=== PATIENT | male | born 1995 | race Caucasian/White ===

== ENCOUNTER 2016-07-05 09:21 | Inpatient (IN) | payer OTHER ==
--- NOTE | 2016-07-05 09:15 | EDPHY ---
HPI/HX/ROS/PE/MDM Narrative: CHIEF COMPLAINT: Self-inflicted lacerations to wrists and groin. HPI: The patient is a 21-year-old male who presents via EMS as a LTA for self- inflicted lacerations to bilateral wrists and groin. He inflicted these at 3am this morning (6 hours). The bleeding has been well-controlled. EMS estimates he lost 3/4-1 liter of blood. He denies lightheadedness, dizziness, or other complaints. He is able to move all of his fingers normally. He denies numbness, weakness, or other complaints. He drank a pint of whiskey last night and ingested 12 oxycodone along with 3 hydrocodone. REVIEW OF SYSTEMS: Aside from elements discussed in the HPI, a comprehensive 10-point review of systems was reviewed and is negative. PMH: Denies. SOCIAL HISTORY: Works at [employer]. PHYSICAL EXAM: General: Patient is alert, in no acute distress. ENT: Eyes are normal to inspection. ENT inspection normal. Neck: Normal inspection. Full range of motion. Respiratory: No respiratory distress. Breath sounds normal bilaterally. Cardiovascular: Regular rate and rhythm. Strong peripheral pulses. 2+ radial pulses bilaterally. 2+ dorsalis pedis pulses bilaterally. Abdomen: The abdomen is nontender to palpation. There are no peritoneal signs. There are normal bowel sounds. Back: Normal to inspection. No tenderness to palpation. Skin: Normal color. No rash. Warm and dry. Extremities: Left arm: 2 lacerations. Distal laceration 3 inches long, proximal laceration 2 inches long. Clotted blood is present and there is no active bleeding. Same on right arm. 4 inch deep laceration to right groin. No active bleeding. Neuro: Oriented x3. Normal motor function. Normal sensory function. Portions of this note were transcribed by an ED scribe. I personally performed the history, physical exam, and medical decision making; and confirm the accuracy of the information in the transcribed note. (Reg Zuluaga) ED Course: Procedure: Laceration repair. Verbal consent was obtained from the patient. The 13 cm laceration on the right inner thigh was anesthetized using 0.5% Marcaine with epinephrine. The wound was carefully irrigated by the emergency department electroencephalograph technician. Next, the wound was prepped and draped in sterile fashion and explored to its base with a gloved finger. There were no deep structures involved. No tendon injury was identified. No vascular injury was identified. No foreign bodies were identified. The wound was repaired with 4.0 Vicryl rapide 3 deep sutures, 4.0 Prolene, 1 running stitch, 5.0 Prolene, 2 simple interrupted sutures. The wound repair was complex. Multiple wound margins required revising. Multiple flaps required alignment. Significant debridement was required. The procedure was performed by myself. Tetanus and antibiotic status were addressed. (Hortencia Ku) I met EMS on arrival and obtained a report from the shuttle preparation supervisor. This patient arrived as a LTA for 2 self-inflicted lacerations to each wrist and a large laceration to his right groin. His vitals are stable. Blood pressure is normal. The bleeding has been well controlled and the wrist lacerations are scabbed over. He inflicted these at 3 am. He drank a pint of whiskey and took a number of opiate pain medications. He denies lightheadedness, dizziness, or other complaints. On exam the lacerations to his wrists are 2 and 3 inches long and clotted. There is no active bleeding. The laceration to his groin is 4 inches long and quite deep. Again, there is no active bleeding. An IV was established and labs ordered. I reviewed the patient's laboratory studies. WBC elevated at 21.63. Hortencia Ku, SHIFT MGR, to repair patient's lacerations. 1206: On exam the patient has cut through the palmaris longus tendon and possibly the median nerve. Hand surgery paged. 1220: Dr. Dove will take the patient to the operating room later today. 1230: Consulted with Dr. Padilla, surgery. He will consult on the patient. 1350: Consulted with Dr. Padilla. He recommends admission to medicine service. 1406: Consulted with hospitalist. Admission accepted for Dr. Cavazos. ( Reg Zuluaga) MDM: This patient presents with multiple deep self-inflicted lacerations. Detailed exam by Hortencia Ku reveals at least to flexor tendon lacerations. The patient will be repaired in the operating room later this evening. Given the fact that he is on an M1 hold, he will need to be admitted by the Medicine service in the ICU the following that, he will or require mental health evaluation and I suspect likely inpatient placement. (Reg Zuluaga) - Data Points Laboratory Results: Laboratory Results 07/05/16 09:29 07/05/16 09:29 07/05/16 07/05/16 07/05/16 09:29 09:29 09:29 WBC 21.53 10^3/uL H 10^3/uL (3.80-9.50) RBC 4.93 10^6/uL 10^6/uL (4.40-6.38) Hgb 15.2 g/dL g/dL (13.7-17.5) Hct 43.8 % % (40.0-51.0) MCV 88.8 fL fL (81.5-99.8) MCH 30.8 pg pg (27.9-34.1) MCHC 34.7 g/dL g/dL (32.4-36.7) RDW 11.9 % % (11.5-15.2) Plt Count 365 10^3/uL 10^3/uL (150-400) MPV 10.1 fL fL (8.7-11.7) Neut % (Auto) Not Reported Lymph % (Auto) Not Reported [place] % (Auto) Not Reported Eos % (Auto) Not Reported Baso % (Auto) Not Reported Nucleat RBC Rel Count 0.0 % % (0.0-0.2) Absolute Neuts (auto) Not Reported Absolute Lymphs (auto) Not Reported Absolute Monos (auto) Not Reported Absolute Eos (auto) Not Reported Absolute Basos (auto) Not Reported Absolute Nucleated RBC 0.00 10^3/uL 10^3/uL (0-0.01) Immature Gran % Not Reported Seg Neutrophils % 78 % % Band Neutrophils % 6 % % Lymphocytes % 12 % % Monocytes % 4 % % Immature Gran # Not Reported Absolute Seg Neuts 16.79 10^/uL H 10^/uL (1.70-6.50) Absolute Band Neuts 1.29 10^3/uL H 10^3/uL (0.00-0.70) Absolute Lymphocytes 2.58 10^3/uL 10^3/uL (1.00-3.00) Absolute Monocytes 0.86 10^3/uL H 10^3/uL (0.30-0.80) RBC/WBC/PLT Morphology NORMAL (NORMAL) Platelet Estimate ADEQUATE (ADEQ) Sodium 142 mEq/L mEq/L (134-144) Potassium 4.2 mEq/L mEq/L (3.5-5.2) Chloride 106 mEq/L mEq/L (97-110) Carbon Dioxide 20 mEq/l L mEq/l (22-31) Anion Gap 16 mEq/L mEq/L (8-16) BUN 11 mg/dL mg/dL (7-23) Creatinine 1.0 mg/dL mg/dL (0.7-1.3) Estimated GFR > 60 Glucose 184 mg/dL H mg/dL (70-100) Calcium 9.2 mg/dL mg/dL (8.5-10.4) Salicylates < 1.0 mg/dL L mg/dL (2.0-20.0) Acetaminophen 19 mcg/mL mcg/mL (10.0-30.0) Ethyl Alcohol 166 mg/dL H mg/dL (0-10) Medications Given: Discontinued Medications Fentanyl (Sublimaze) 50 mcg IVP EDNOW ONE Stop: 07/05/16 10:34 Last Admin: 07/05/16 11:15 Dose: 50 mcg Sodium Chloride (Ns) 1,000 mls @ 0 mls/hr IV ONCE ONE PRN Reason: Wide Open Stop: 07/05/16 09:31 Last Admin: 07/05/16 09:47 Dose: 1,000 mls Ondansetron HCl (Zofran) 4 mg IVP EDNOW ONE Stop: 07/05/16 09:44 Last Admin: 07/05/16 09:51 Dose: 4 mg General Initial Vital Signs: Initial Vital Signs Temperature (C) 36.5 C 07/05/16 09:28 Heart Rate 121 H 07/05/16 09:28 Respiratory Rate 24 H 07/05/16 09:28 Blood Pressure 97/86 H 07/05/16 09:28 O2 Sat (%) 93 07/05/16 09:28 O2 Delivery Mode Room Air Allergies/Adverse Reactions: No Known Allergies Allergy (Unverified 01/18/14 08:44) Home Medications: Medication Instructions Recorded NK [No Known Home Meds] 01/18/14 Departure - Departure Disposition: [facility] Inpatient Acute Clinical Impression: Multiple lacerations, Suicide ideation, Tendon laceration Condition: Fair Report Scribed for: Reg Zuluaga Report Scribed by: Malachi Vargas Date of Report: 07/05/16 Time of Report: 09:33
[2016-07-05] MEDS ORDERED: NS 1,000 ML IV ONE (09:30)
[2016-07-05] MEDS ORDERED: ONDANSETRON 4 MG/2 ML VIAL IVP ONE (09:43)
[2016-07-05 10:20] LABS: ADD DIFF? YES; ADD MORPH? NO; ADD SCAN? NO; ATYPICAL LYMPHOCYTE FLAG 0 (0-99); FRAGMENT RBC FLAG 0 (0-99); HEMATOCRIT 43.8 % (40.0-51.0); HEMOGLOBIN 15.2 g/dL (13.7-17.5); LEFT SHIFT FLG 20 (0-99); LIPEMIA HEMOLYSIS FLAG 90 (0-99); MEAN CELL HEMOGLOBIN 30.8 pg (27.9-34.1); MEAN CELL HEMOGLOBIN CONCENTR. 34.7 g/dL (32.4-36.7); MEAN CELL VOLUME 88.8 fL (81.5-99.8); MEAN PLATELET VOLUME 10.1 fL (8.7-11.7); PLATELET CLUMPS FLAG 0 (0-99); PLATELET COUNT 365 10^3/uL (150-400); RED BLOOD CELL COUNT 4.93 10^6/uL (4.40-6.38); RED CELL DISTRIBUTION WIDTH 11.9 % (11.5-15.2)
[2016-07-05 10:24] LABS: ANION GAP 16 mEq/L (8-16); CALCIUM 9.2 mg/dL (8.5-10.4); CARBON DIOXIDE 20 mEq/l (22-31); CHLORIDE 106 mEq/L (97-110); ETHANOL SERUM 166 mg/dL (0-10); GLOMERULAR FILTRATION RATE > 60; GLUCOSE 184 mg/dL (70-100); POTASSIUM 4.2 mEq/L (3.5-5.2); SODIUM 142 mEq/L (134-144)
[2016-07-05] MEDS ORDERED: fentaNYL 100 MCG/2 ML INJ IVP ONE (10:33)
[2016-07-05 10:46] LABS: SALICYLATE < 1.0 mg/dL (2.0-20.0)
[2016-07-05 10:52] LABS: PLATELET ESTIMATE ADEQUATE (ADEQ)
[2016-07-05] MEDS ORDERED: BUPIVACAINE 0.5% 30 ML SDV ONE ×2 (13:58→16:31)
[2016-07-05] MEDS ORDERED: POLYMYXIN B SULFATE 500,000 UNIT/10 ML SYR IRR ONE ×2 (13:59→16:32)
[2016-07-05] MEDS ORDERED: BACITRACIN 50,000 UNITS/10 ML SYR IRR ONE (13:59)
[2016-07-05] MEDS ORDERED: HYDROmorphONE/DILAUDID 1 MG/ML SYR IVP PRN (15:35)
[2016-07-05] MEDS ORDERED: ONDANSETRON DISINTEGRATING 4 MG TAB PO PRN (15:35)
[2016-07-05] MEDS ORDERED: ONDANSETRON 4 MG/2 ML VIAL IVP PRN (15:35)
[2016-07-05 15:44] LABS: HEMATOCRIT 35.1 % (40.0-51.0); HEMOGLOBIN 12.2 g/dL (13.7-17.5)
[2016-07-05] MEDS ORDERED: NS 1,000 ML IV SCH (15:45)
--- NOTE | 2016-07-05 16:20 | PDGENHP ---
History and Physical - Chief Complaint suicide attempt - History of Present Illness 21 yo male with h/o depression diagnosed as a teenager, presented to ED after cutting his wrists last night. His girlfriend told him that she didn't love him , but he loves her. He felt so hopeless and cut his wrists, expecting not to wake up. He was diagnosed with depression at age 16 and started on Prozac, though he felt this made him "numb" so he stopped taking it. He has no prior h/ o suicide attempts and no prior hospitalizations. He is unsure how he feels now , is quite tearful. Unable to answer if he still has suicidal thoughts. He denies CP, SOB, lightheadedness or dizziness. History Information - Allergies/Home Medication List Allergies/Adverse Reactions: No Known Allergies Allergy (Unverified 01/18/14 08:44) Home Medications: NK [No Known Home Meds] 01/18/14 [Last Taken Unknown] I have personally reviewed and updated: family history, medical history, social history, surgical history - Past Medical History Additional medical history: depression diagnosed as a teenager - Surgical History Reports: no pertinent surgical hx - Family History Additional family history: mom has depression - Social History Smoking Status: Never smoked Alcohol Use: Other (1-2 beers a day) Drug Use: Marijuana Additional social history: 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 Girlfriend just broke up with him, prompting his self injury. [place] he does not [place] them alerted to his status at this time. Review of Systems ROS: 10pt was reviewed & negative except for what was stated in HPI & below Physical Exam Temp Pulse Resp BP Pulse Ox 36.6 C 82 16 100/60 97 07/05/16 15:00 07/05/16 16:00 07/05/16 16:00 07/05/16 16:00 07/05/16 16:00 Constitutional: no apparent distress Eyes: PERRL Ears, Nose, Mouth, Throat: moist mucous membranes Cardiovascular: regular rate and rhythym, no murmur, rub, or gallop Respiratory: no respiratory distress, clear to auscultation Gastrointestinal: normoactive bowel sounds, soft, non-tender abdomen Skin: other (b/l wrist bandages, right bandage is saturated and bleeding onto bed, pressure dressing applied) Musculoskeletal: full muscle strength Neurologic: AAOx3 Psychiatric: interacting appropriately, anxious Lab Data & Imaging Review 07/05/16 15:30 07/05/16 09:29 WBC 21.53 10^3/uL (3.80-9.50) H 07/05/16 09:29 RBC 4.93 10^6/uL (4.40-6.38) 07/05/16 09:29 Hgb 12.2 g/dL (13.7-17.5) L 07/05/16 15:30 Hct 35.1 % (40.0-51.0) L 07/05/16 15:30 MCV 88.8 fL (81.5-99.8) 07/05/16 09:29 MCH 30.8 pg (27.9-34.1) 07/05/16 09:29 MCHC 34.7 g/dL (32.4-36.7) 07/05/16 09:29 RDW 11.9 % (11.5-15.2) 07/05/16 09:29 Plt Count 365 10^3/uL (150-400) 07/05/16 09:29 MPV 10.1 fL (8.7-11.7) 07/05/16 09:29 Neut % (Auto) Not Reported 07/05/16 09:29 Lymph % (Auto) Not Reported 07/05/16 09:29 [place] % (Auto) Not Reported 07/05/16 09:29 Eos % (Auto) Not Reported 07/05/16 09:29 Baso % (Auto) Not Reported 07/05/16 09:29 Nucleat RBC Rel Count 0.0 % (0.0-0.2) 07/05/16 09:29 Absolute Neuts (auto) Not Reported 07/05/16 09:29 Absolute Lymphs (auto) Not Reported 07/05/16 09:29 Absolute Monos (auto) Not Reported 07/05/16 09:29 Absolute Eos (auto) Not Reported 07/05/16 09:29 Absolute Basos (auto) Not Reported 07/05/16 09:29 Absolute Nucleated RBC 0.00 10^3/uL (0-0.01) 07/05/16 09:29 Immature Gran % Not Reported 07/05/16 09:29 Seg Neutrophils % 78 % 07/05/16 09:29 Band Neutrophils % 6 % 07/05/16 09:29 Lymphocytes % 12 % 07/05/16 09:29 Monocytes % 4 % 07/05/16 09:29 Immature Gran # Not Reported 07/05/16 09:29 Absolute Seg Neuts 16.79 10^/uL (1.70-6.50) H 07/05/16 09:29 Absolute Band Neuts 1.29 10^3/uL (0.00-0.70) H 07/05/16 09:29 Absolute Lymphocytes 2.58 10^3/uL (1.00-3.00) 07/05/16 09:29 Absolute Monocytes 0.86 10^3/uL (0.30-0.80) H 07/05/16 09:29 RBC/WBC/PLT Morphology NORMAL (NORMAL) 07/05/16 09:29 Platelet Estimate ADEQUATE (ADEQ) 07/05/16 09:29 Sodium 142 mEq/L (134-144) 07/05/16 09:29 Potassium 4.2 mEq/L (3.5-5.2) 07/05/16 09:29 Chloride 106 mEq/L (97-110) 07/05/16 09:29 Carbon Dioxide 20 mEq/l (22-31) L 07/05/16 09:29 Anion Gap 16 mEq/L (8-16) 07/05/16 09:29 BUN 11 mg/dL (7-23) 07/05/16 09:29 Creatinine 1.0 mg/dL (0.7-1.3) 07/05/16 09:29 Estimated GFR > 60 07/05/16 09:29 Glucose 184 mg/dL (70-100) H 07/05/16 09:29 Calcium 9.2 mg/dL (8.5-10.4) 07/05/16 09:29 Salicylates < 1.0 mg/dL (2.0-20.0) L 07/05/16 09:29 Urine Opiates Screen NON-NEGATIVE (NEGATIVE) H 07/05/16 15:25 Acetaminophen 19 mcg/mL (10.0-30.0) 07/05/16 09:29 Urine Barbiturates NEGATIVE (NEGATIVE) 07/05/16 15:25 Ur Phencyclidine Scrn NEGATIVE (NEGATIVE) 07/05/16 15:25 Ur Amphetamine Screen NEGATIVE (NEGATIVE) 07/05/16 15:25 U Benzodiazepines Scrn NEGATIVE (NEGATIVE) 07/05/16 15:25 Urine Cocaine Screen NEGATIVE (NEGATIVE) 07/05/16 15:25 U Marijuana (THC) Screen NEGATIVE (NEGATIVE) 07/05/16 15:25 Ethyl Alcohol 166 mg/dL (0-10) H 07/05/16 09:29 Crossmatch IS Only See Detail 07/05/16 15:33 Assessment & Plan Assessment: Suicide attempt - b/l wrist lacerations with tendon injury. Vascular surgery consulted from ED and pt to go to OR this afternoon. Given blood loss, repeat H &H now and follow serial H&H. He is hemodynamically stable. Type and screen, 2 units on hold. NPO for surgery. Suicide precautions, M1 hold, psych eval for inpt psych bed when medically cleared. Depression - as above, psych consult when medically cleared. Acute blood loss anemia - hgb dropped 3 pts, down to 12.2 from 15. He remains hemodynamically stable, monitor closely. Typed and screened, 2 units on hold. Leukocytosis - suspect stress reaction. No e/o infection. Cont to monitor. Full code Dispo - inpt, will require >48 hrs hospitalization for surgical intervention and stabilization. ICU.
[2016-07-05] MEDS ORDERED: PROPOFOL 200 MG/20 ML VIAL ONE ×2 (16:59)
[2016-07-05] MEDS ORDERED: fentaNYL 100 MCG/2 ML INJ ONE ×4 (16:59→22:15)
[2016-07-05] MEDS ORDERED: LIDOCAINE 2% 100 MG/5 ML SYR ONE (17:02)
[2016-07-05] MEDS ORDERED: MIDAZOLAM 2 MG/2 ML VIAL ONE (17:06)
[2016-07-05] MEDS ORDERED: ceFAZolin 2 GM/DEXTROSE 100 ML IV ONE (18:00)
[2016-07-05] MEDS ORDERED: DEXAMETHASONE 4 MG/ML VIAL ONE (18:24)
[2016-07-05] MEDS ORDERED: ONDANSETRON 4 MG/2 ML VIAL ONE (18:24)
--- NOTE | 2016-07-05 19:26 | GCON ---
[f rep st] CONSULTATION DATE OF CONSULTATION: 07/05/2016 HISTORY OF PRESENT ILLNESS: Patient is a 21-year-old male who is quite depressed over a recent rela tionship break-up. He presented to the ER with a suicide gesture after cutting both wrists and his left internal thigh. He was drinking at the time, and he has had depression in the past. ALLERGIES: None. MEDICATIONS: None. PAST HISTORY: Reveals no major medical problems or surgeries in the past. REVIEW OF SYSTEMS: Negative on a full complete review of systems. PHYSICAL EXAMINATION: GENERAL: An alert, depressed 21-year-old male, in no acute distress. HEAD a nd NECK: No evidence of trauma. CHEST: Clear to auscultation and percussion. CARDIAC: Regular r hythm without murmurs. ABDOMEN: Soft and nontender. EXTREMITIES: Full pulses. Full range of mot ion. He has bilateral wrist cuts down to the flexor tendons, although his motor function is intact. He is presently not bleeding significantly; although, these were deep cuts into the muscle. He roberson s bilateral all 4 extremity palpable pedal pulses. Hands are neurologically intact with full motor function and almost full sensory function. In addition, he has a 4 cm laceration of his inner left thigh which has been sutured by the ER department. CARDIAC: Regular rhythm without murmurs. ABDOM EN: Soft and nontender without masses, organomegaly, or hernias. GENITALIA: Normal. neurological intact with full motor function in all full sensory function in addition he has a 4 cm laceration i n his left thigh, which has been sutured by the ER department. NEUROLOGIC: Cranial nerves are inta ct. Motor and sensory exam peripherally intact. IMPRESSION: 1. Depression. 2. Serious suicide gesture. 3. Bilateral forearm lacerations. 4. A left thigh medial laceration. PLAN: The patient is admitted on a mental health hold to ICU on the medicine service. His wounds h ave been cleaned and dressed, and he will be taken the OR by Dr. Dove for exploration and repair of his wrist lacerations. The thigh lesion was repaired in the emergency room already. He will need a psychiatric consult. /[id number]/MODL
[2016-07-05 21:59] LABS: HEMATOCRIT 30.8 % (40.0-51.0); HEMOGLOBIN 10.8 g/dL (13.7-17.5)
[2016-07-05] MEDS: fentaNYL 100 MCG/2 ML INJ IVP PRN ×3 (22:00→22:30)
--- NOTE | 2016-07-05 22:11 | GCON ---
[f rep st] CONSULTATION INPATIENT CONSULT REPORT DATE OF CONSULTATION: 07/05/2016 CURRENT COMPLAINT: Bilateral hand pain, numbness, and weakness. HISTORY OF PRESENT ILLNESS: This is a 21-year-old male, who cut both of his wrists last night, woke up this morning covered in blood, was brought to the emergency room diagnosed with large laceration s to the wrist. There is a question of tendon involvement. He was, therefore, admitted not only fo r the wrist, but also for psych reasons. I was asked to see the patient for further evaluation. PHYSICAL EXAM: EXTREMITIES: Both hands are in dressings. Upon examination, he has no sensation to the median nerve on the right side, but he does have intact sensation to the ulnar nerve. On the l eft side, he has some subjective decrease in sensation to the median nerve, but has intact sensation to the ulnar nerve. Both sides have intact radial nerve. Motor was not tested secondary to the pa herberth's request secondary to the pain he was experiencing. ASSESSMENT AND PLAN: The patient is a rule out bilateral tendon lacerations with possible neurologi c involvement. He will be brought to the operating room as soon as time is available. /[id number]/MODL
[2016-07-05] MEDS: HYDROmorphONE/DILAUDID 1 MG/ML SYR IVP PRN (23:04)
--- NOTE | 2016-07-05 23:11 | GOP ---
[f rep st] OPERATIVE REPORT DATE OF OPERATION: 07/05/2016 SURGEON: Joya Dove MD ANESTHESIA: By LMA. PREOPERATIVE DIAGNOSIS: Bilateral wrist lacerations with tendon and nerve involvement. POSTOPERATIVE DIAGNOSIS: Bilateral wrist lacerations with tendon and nerve involvement with right-s ided index finger, middle finger, and ring finger flexor digitorum superficialis lacerations and med jennifer nerve laceration and left-sided middle finger and ring finger flexor digitorum superficialis lac erations, laceration of the flexor carpi ulnaris, partial laceration of the ulnar nerve, and transec tion of the ulnar artery. PROCEDURE PERFORMED: Right wrist tendon repair of the index finger FDS, middle finger FDS, ring fin nasir FDS, and median nerve repair with open carpal tunnel release and left-sided middle finger FDS, t he ring finger FDS repair with flexor carpi ulnaris repair, debridement of ulnar nerve, ligation of ulnar artery, and open carpal tunnel release. FINDINGS: DESCRIPTION OF PROCEDURE: Patient brought to the operating room after both sides had been identifie d as the correct side by the patient, nurse, and physician. Once in the operating room, he was plac ed under general anesthesia using an LMA. Once asleep, tourniquet was placed around both upper extr emities. The right upper extremity was then sterilely prepped and draped in the usual fashion using GSI solution. Once prepped and draped, the limb was exsanguinated and tourniquet inflated to 250 m mHg. The 2 large oblique lacerations at his wrist and distal forearm were debrided. The area of th e distal laceration was explored and found to have multiple tendon lacerations and a median nerve la ceration, and an open carpal tunnel release was performed in order to gain further access into the d istal wrist. The flexor digitorum superficialis of the index finger, middle finger, and ring finger were identified, and they were sewn together using 4-0 nylon suture in a modified [place] stitch wi th the middle finger FDS also having circumferential repair using 4-0 nylon suture. Once completed, an epineural repair was performed using 6-0 nylon suture in 4 different areas around the epineural layer in order to gain apposition across the median nerve. The wrist was kept in flexion the entire time. The wound was then thoroughly irrigated with antibiotic solution and was closed with 2-0 nyl on for the glabrous skin associated with the palm. Otherwise, 3-0 nylon suture in a vertical mattre ss stitch to close all of the lacerations. The tourniquet was deflated at 77 minutes. The wounds w ere dressed with Xeroform, 4x4s, and wrapped in Webril. A short-arm dorsal splint was placed from t he elbow to the tips of his fingers holding his fingers and wrist in a flexed position. Once completed, attention was turned to the left limb with the left upper extremity sterilely preppe d and draped in the usual fashion using GSI solution. Once prepped and draped, limb was exsanguinat ed, and tourniquet inflated to 250 mmHg. Exploration of the wound revealed the more proximal wound to be very superficial, not breaking the fascia layers. However, the more distal wound which was pr oximal to the distal volar crease of the wrist not only lacerated through muscular layers, but also tenderness layers. Exploration revealed the palmaris longus to be intact along with the median nerv e at this level. An open carpal tunnel release was performed in order to gain further access to the tendons and nerve within the wrist. The median nerve was noted to be intact along with most of the tendons. He was noted to have lacerations of the flexor digitorum superficialis of the middle fing er and the ring finger. Complete transection of the flexor carpi ulnaris, partial laceration of the ulnar nerve which was followed into [place] canal. He also had transection and sectional loss of his ulnar artery on that side. However, the radial artery remained intact. Therefore, 4-0 nylon sutur e was used in a modified [place] type stitch in order to repair the FDS of the middle finger and the ring finger. 2-0 Ethibond was used in a Tyler-Navjot locking stitch in order to repair the muscular portion of the FCU and in a modified Timothy type stitch in order to close the tendinous portion of the FCU. The ulnar nerve was explored. There was a partial laceration along the epineural layer, an d this was debrided, but no repair was performed. He had sectional loss of the tissue associated wi th the ulnar artery. It was therefore ligated proximally and distally. Once completed, the wound was thoroughly irrigated with an antibiotic solution. 3-0 nylon suture was used in a horizontal mattress type stitch for the glabrous skin associated with the carpal tunnel. Otherwise, a 3-0 nylon suture was then used in a vertical mattress type stitch for the other remain ing soft tissue closure. Once completed, the wounds were dressed with Xeroform, 4x4s, and Webril. A dorsal plaster splint was placed from the elbow to the tips of the fingers holding the fingers and wrist in a flexed and relaxed flexed position. Tourniquet was deflated at 65 minutes. Fingers wer e noted to pink up almost immediately. Tourniquets were removed from both upper extremities. He roberson d JASON wraps placed around each splint. He was then woken up, extubated, transferred onto a bed, and sent back to the ICU in good condition. SURGEON: Dr. Joya Dove. TOURNIQUET TIME: 77 minutes on the right side and 55 minutes on the left side. /[id number]/MODL
[2016-07-06] MEDS: oxyCODONE IR 5 MG TAB PO PRN ×4 (00:40→19:24)
[2016-07-06 01:16] LABS: HEMATOCRIT 29.2 % (40.0-51.0); HEMOGLOBIN 10.1 g/dL (13.7-17.5)
[2016-07-06] MEDS: DEXMEDETOMIDINE HCL 400 MCG in NS 100 ML IV SCH ×2 (01:55→18:37)
[2016-07-06 04:34] LABS: % IMMATURE GRANULYOCYTES 0.5 % (0.0-1.1); ABSOLUTE IMMATURE GRANULOCYTES 0.07 10^3/uL (0.00-0.10); ADD DIFF? NO; ADD MORPH? NO; ADD SCAN? NO; ATYPICAL LYMPHOCYTE FLAG 10 (0-99); FRAGMENT RBC FLAG 0 (0-99); HEMATOCRIT 25.5 % (40.0-51.0); HEMOGLOBIN 8.9 g/dL (13.7-17.5); LEFT SHIFT FLG 10 (0-99); LIPEMIA HEMOLYSIS FLAG 90 (0-99); MEAN CELL HEMOGLOBIN 31.4 pg (27.9-34.1); MEAN CELL HEMOGLOBIN CONCENTR. 34.9 g/dL (32.4-36.7); MEAN CELL VOLUME 90.1 fL (81.5-99.8); PLATELET CLUMPS FLAG 10 (0-99); PLATELET COUNT 193 10^3/uL (150-400); RED BLOOD CELL COUNT 2.83 10^6/uL (4.40-6.38); RED CELL DISTRIBUTION WIDTH 11.8 % (11.5-15.2)
[2016-07-06] MEDS: HYDROmorphONE/DILAUDID 1 MG/ML SYR IVP PRN ×5 (05:41→19:25)
--- NOTE | 2016-07-06 09:05 | TRAUMAPN ---
Assessment/Plan: 21yo M s/p Addi arm washout and tendon repair for self-inflicted SW to both forearms - Neuro: Pain was significant issue yesterday, better this AM on Precedex gtt. Will wean as tolerated - Pulm: on min NC, aggressive IS. Lungs overall clear - CV: SBP has been in the 90s, not tachycardic. Likely 2/2 acute blood loss and precedex - Abd: soft, nondistended, nontender. Reg diet. Bowel regimen - Renal: UOP appropriate, Cr stable - Hb: drifted from 15 at admit to 8 this AM. Had extensive EBL in the field given injuries. Monitor, transfuse if <7 - ID: afebrile, WBC down to 13. Received periop abx. - Dispo: wean precedex, PT/OT for upper arms, legs. Ortho to make decisions regarding hand, forearm PT/OT. Remains on M1 hold. Not currently medically cleared Subjective: Sleepy, pain appears better controlled this AM Objective: Vital Signs Temp Pulse Resp BP Pulse Ox 36.8 C 62 14 95/43 L 100 07/06/16 08:00 07/06/16 08:00 07/06/16 08:00 07/06/16 08:00 07/06/16 08:00 Laboratory Results 07/06/16 04:10 07/05/16 07/06/16 07/07/16 05:59 05:59 05:59 Intake Total 2600 300 Output Total 1150 Balance 1450 300 Physical Exam - Physical Exam General Appearance: alert, no apparent distress EENT: PERRL/EOMI Neck: non-tender, full range of motion Respiratory: chest non-tender, lungs clear Cardiac/Chest: normal peripheral pulses Abdomen: normal bowel sounds, non-tender, soft Extremities: other (both arms wrapped with clean JASON bandages. )
--- NOTE | 2016-07-06 09:10 | HOSPPROG ---
Hospitalist Progress Note Assessment/Plan: Suicide attempt - required extensive surgery last night for b/l flexor tendon injuries and ulnar artery ligation. Required Precedex, as frequent IV Dilaudid doses not sufficient to control pain and agitation. -wean Precedex -cont IV dilaudid for pain control -psych consult when medically clear, will need inpt psych Acute blood loss anemia - Hgb trended down to 8.9, suspect hypotension related to precedex as no tachycardia -cont to monitor Leukocytosis - likely stress reaction, trending down, no e/o infection. Monitor. Full code Subjective: Pt sedated on Precedex, awakens to verbal stimuli. Pain controlled. No fevers. Objective: Vital Signs Temp Pulse Resp BP Pulse Ox 36.8 C 62 14 95/43 L 100 07/06/16 08:00 07/06/16 08:00 07/06/16 08:00 07/06/16 08:00 07/06/16 08:00 Laboratory Results 07/06/16 04:10 07/05/16 07/06/16 07/07/16 05:59 05:59 05:59 Intake Total 2600 300 Output Total 1150 Balance 1450 300 - Physical Exam Constitutional: no apparent distress Eyes: PERRL Ears, Nose, Mouth, Throat: moist mucous membranes Cardiovascular: regular rate and rhythym, systolic murmur Respiratory: no respiratory distress, clear to auscultation Gastrointestinal: normoactive bowel sounds, soft, non-tender abdomen Skin: warm Musculoskeletal: other (b/l UE bandages c/d/i, 2+ LE DP's) Neurologic: AAOx3 Psychiatric: interacting appropriately, depressed ICD10 Worksheet Patient Problems: Problems Problem Status Onset Multiple lacerations Acute Suicide ideation Acute Tendon laceration Acute
--- NOTE | 2016-07-06 10:12 | GCON ---
[f rep st] CONSULTATION DUPLICATION SPECIALIST CONSULTATION REASON FOR ADMISSION: Suicide attempt, laceration of wrists. HISTORY OF PRESENT ILLNESS: The patient is a 21-year-old white male without a past medical history, though he did have a history of depression diagnosed as a teenager. He presented to the emergency room after slashing both wrists. Apparently his girlfriend had told him she did not love him. He w as seen in the emergency room by both Surgery as well as the hospitalist. He went to the operating room by Dr. Joya Dove, and a right wrist tendon repair was performed with an open carpal tunnel rele ase. He also had a left-sided repair. He had debridement of the ulnar nerve, ligation of the ulnar artery, and again open carpal tunnel release. Currently, he is in the intensive care unit. His nu rse explains he was quite agitated yesterday evening. Currently, he is somewhat somnolent. PAST MEDICAL HISTORY: Significant for depression. ALLERGIES: None known to medications. SOCIAL HISTORY: No history of tobacco use. Daily alcohol use. Also uses marijuana. 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 PHYSICAL EXAM: VITAL SIGNS: Blood pressure 102/46. Pulse is 63. Respirations are 12. Temperatur e 36.8. Oxygen saturation is 100% on 2 L. GENERAL: He is a well-developed, well-nourished 21-year -old male who is resting comfortably in no acute distress. HEENT: Eyes: MINA. EOMI. Throat show s no erythema nor tonsillar hypertrophy. NECK: Supple. There is no cervical adenopathy. HEART: Regular rate and rhythm without murmurs, rubs, or gallops. LUNGS: Clear to auscultation. No wheez es or rhonchi. ABDOMEN: Soft, nontender. Bowel sounds present in all 4 quadrants. EXTREMITIES: His bilateral upper extremities are extensively bandaged. LABORATORY DATA: White count is 12.9, hemoglobin 8.9, hematocrit 25, platelet count is 193. Sodium 142, potassium 4.2, chloride 106, CO2 is 20, BUN is 11, creatinine is 1, glucose is 184. Urine tox screen is negative for opiates. Alcohol level is 166. IMPRESSION: 1. Suicide attempt. 2. Extensive lacerations to both wrist requiring arterial, tendon, and nerve repairs. 3. Depression. RECOMMENDATIONS: 1. Close cardiovascular monitoring. 2. M1 hold. 3. Will discuss case with surgeon. 4. DVT and PE prophylaxis. 5. Stress ulcer prophylaxis. 6. Adequate nutrition. /[id number]/MODL
--- NOTE | 2016-07-06 15:02 | SOAPPROG ---
SOAP Progress Note Assessment/Plan: Assessment: Plan: Subjective: states he still has pain but better dressings C&D with splints intact decreased to no sensation at right med n intact senstion to left med/uln n cont splints psych eval Objective: Vital Signs Temp Pulse Resp BP Pulse Ox 36.8 C 70 11 L 97/43 L 95 07/06/16 08:00 07/06/16 14:00 07/06/16 14:00 07/06/16 14:00 07/06/16 14:00 Laboratory Results 07/06/16 04:10 07/05/16 07/06/16 07/07/16 05:59 05:59 05:59 Intake Total 600 300 Output Total 750 Balance -150 300 ICD10 Worksheet Patient Problems: Problems Problem Status Onset Multiple lacerations Acute Suicide ideation Acute Tendon laceration Acute
[2016-07-07] MEDS: HYDROmorphONE/DILAUDID 1 MG/ML SYR IVP PRN ×6 (01:48→21:40)
[2016-07-07] MEDS: DEXMEDETOMIDINE HCL 400 MCG in NS 100 ML IV SCH (03:37)
[2016-07-07 05:37] LABS: HEMATOCRIT 24.3 % (40.0-51.0); HEMOGLOBIN 8.2 g/dL (13.7-17.5); MEAN CELL HEMOGLOBIN 30.8 pg (27.9-34.1); MEAN CELL HEMOGLOBIN CONCENTR. 33.7 g/dL (32.4-36.7); MEAN CELL VOLUME 91.4 fL (81.5-99.8); RED BLOOD CELL COUNT 2.66 10^6/uL (4.40-6.38); RED CELL DISTRIBUTION WIDTH 11.7 % (11.5-15.2)
[2016-07-07] MEDS: oxyCODONE IR 5 MG TAB PO PRN ×4 (07:11→21:17)
[2016-07-07] MEDS ORDERED: BISACODYL 10 MG SUPP PR PRN (07:14)
[2016-07-07] MEDS ORDERED: LACTULOSE 20 GM/30 ML UDCUP PO PRN (07:14)
[2016-07-07] MEDS ORDERED: MAGNESIUM HYDROXIDE 30 ML UDCUP PO PRN (07:14)
[2016-07-07] MEDS ORDERED: POLYETHYLENE GLYCOL 3350 17 GM PKT PO PRN (07:14)
--- NOTE | 2016-07-07 08:52 | PDINTPN ---
[facility] Progress Note Assessment/Plan: Assessment: * Suicide attempt * Bilateral wrist lacerations with extensive tendon and nerve repair -continue splinting and extensive bandaging * Depression Plan: Continue present care Anticipate medical clearance soon Subjective: Resting comfortably. Patient states pain is tolerable. Objective: Vital Signs Temp Pulse Resp BP Pulse Ox 37.0 C 70 12 106/50 L 93 07/06/16 20:00 07/07/16 07:00 07/07/16 07:00 07/07/16 07:00 07/07/16 07:00 Laboratory Results 07/07/16 05:15 07/06/16 07/07/16 07/08/16 05:59 05:59 05:59 Intake Total 600 2424.7 Output Total 750 300 250 Balance -150 2124.7 -250 Physical Exam - Physical Exam General Appearance: alert, no apparent distress EENT: PERRL/EOMI, normal ENT inspection Neck: non-tender, full range of motion, supple, normal inspection Respiratory: chest non-tender, lungs clear, normal breath sounds Cardiac/Chest: normal peripheral pulses, regular rate, rhythm Peripheral Pulses: 2+: carotid (R), carotid (L), femoral (R), femoral (L), dorsalis-pedis (R), dorsalis-pedis (L) Abdomen: normal bowel sounds, non-tender, soft Male Genitalia: deferred Rectal: deferred Skin: normal color, warm/dry Extremities: other (Upper extremities splinted and bandaged) Neuro/Psych: alert ICD10 Worksheet Patient Problems: Problems Problem Status Onset Multiple lacerations Acute Suicide ideation Acute Tendon laceration Acute
[2016-07-07] MEDS ORDERED: LORazepam 2 MG/ML INJ IVP PRN (09:11)
[2016-07-07] MEDS: SENNOSIDES/DOCUSATE SODIUM TAB PO SCH ×2 (09:22→21:10)
[2016-07-07] MEDS ORDERED: LORazepam 1 MG TAB ONE (09:23)
[2016-07-07] MEDS: LORazepam 1 MG TAB PO PRN ×2 (09:26→16:26)
--- NOTE | 2016-07-07 11:06 | TRAUMAPN ---
- Problem/Surgery Performed (1) Self-inflicted laceration of wrist Qualifiers: Encounter type: initial encounter Laterality: L Assessment/Plan: s/p self inflicted bilateral forearm lacerations with multiple flexor tendon lacs, right median nerve lac/left ulnar nerve transection stable with moderate to severe pain Will start Neurontin and cont prn oxycodone splint/wound care per Dr. Dove Subjective: awake and alert/complains of bilateral sever burning pain both arms Objective: Vital Signs Temp Pulse Resp BP Pulse Ox 37.0 C 87 18 116/50 L 100 07/06/16 20:00 07/07/16 08:00 07/07/16 08:00 07/07/16 08:00 07/07/16 08:00 Laboratory Results 07/07/16 05:15 07/06/16 07/07/16 07/08/16 05:59 05:59 05:59 Intake Total 600 2424.7 Output Total 750 300 250 Balance -150 2124.7 -250 - C-Spine Clearance Cervical Spine Cleared: Yes Provider who Cleared Cervical Spine: Dr. Otero Physical Exam - Physical Exam General Appearance: alert, moderate distress Respiratory: lungs clear, normal breath sounds Cardiac/Chest: regular rate, rhythm Abdomen: non-tender, soft Extremities: other (bilateral forearm dorsal splints/finger tips pink/ diminished sensation right thumb) Neuro/Psych: alert, oriented x 3, sensory deficit
[2016-07-07] MEDS ORDERED: GABAPENTIN 300 MG CAP PO SCH ×2 (12:00→16:00)
[2016-07-07] MEDS: GABAPENTIN 300 MG CAP PO SCH ×3 (13:30→21:11)
[2016-07-07] MEDS: ACETAMINOPHEN 325 MG TAB PO PRN (13:55)
--- NOTE | 2016-07-07 14:50 | HOSPPROG ---
Hospitalist Progress Note Assessment/Plan: Suicide attempt - required extensive surgery for b/l flexor tendon injuries and ulnar artery ligation. POD #2. Required Precedex for sedation post-operatively , since weaned off. -cont oral oxy, IV dilaudid for pain control -neurontin added by surgery for neuropathic pain -medically clear for psych consult today, will need surgical f/u for wounds. discussed with Dr. Dove, ok to dc and f/u in his clinic in a week. -inpt psych when bed available Acute blood loss anemia - Hgb trended down to 8.2, hemodynamically stable -cont to monitor Leukocytosis - likely stress reaction, trending down, no e/o infection. Monitor. Full code Subjective: Pt is doing ok, flat affect. Has significant pain b/l arms. No other complaints. Objective: Vital Signs Temp Pulse Resp BP Pulse Ox 38.7 C H 95 26 H 122/58 H 100 07/07/16 13:49 07/07/16 13:49 07/07/16 13:49 07/07/16 13:49 07/07/16 13:49 Laboratory Results 07/07/16 05:15 07/06/16 07/07/16 07/08/16 05:59 05:59 05:59 Intake Total 600 2424.7 Output Total 750 300 450 Balance -150 2124.7 -450 - Physical Exam Constitutional: no apparent distress Eyes: PERRL Ears, Nose, Mouth, Throat: moist mucous membranes Cardiovascular: regular rate and rhythym Respiratory: no respiratory distress, clear to auscultation Gastrointestinal: normoactive bowel sounds, soft, non-tender abdomen Skin: warm Musculoskeletal: other (decreased sensation right median nerve) Neurologic: AAOx3 Psychiatric: depressed, flat affect ICD10 Worksheet Patient Problems: Problems Problem Status Onset Multiple lacerations Acute Self-inflicted laceration of wrist Acute Suicide ideation Acute Tendon laceration Acute
--- NOTE | 2016-07-07 18:32 | GDS ---
[f rep st] DISCHARGE SUMMARY DISCHARGE DIAGNOSES: 1. Suicide attempt, with bilateral forearm lacerations causing extensive tendon and nerve injury, as well as ulnar artery injury. 2. Acute blood loss anemia. 3. Leukocytosis, secondary to stress reaction, resolved. 4. History of depression. CONSULTANTS: 1. Travis Padilla MD, General Surgery. 2. Joya Dove MD, Orthopedic Surgery. 3. Danilo Mckeon DO, Pulmonology. HISTORY: Reviewed. For details, please see the history and physical dated July 05, 2016. In brief, the patient is a 21-year-old male, who was diagnosed with depression as a teenager, presents to the emergency department after cutting extensively on both of his forearms after having some problems with his girlfriend. He was admitted to the hospital for further management. HOSPITAL COURSE: The patient was admitted to the intensive care unit. Surgery consult was obtained. He was taken to the operating room that same day by Dr. Joya Dove, orthopedic surgeon, where he underwent right wrist tendon repair of the index finger, middle finger and ring finger flexor digitorum superficialis, as well as median nerve repair on the right, with open carpal tunnel release, and left-sided middle and ring finger tendon repair of the flexor digitorum superficialis, with repair of the left flexor carpi ulnaris tendon, debridement of the ulnar nerve, ligation of the ulnar artery, and open carpal tunnel release. He was placed in bilateral dorsal plaster splints from the elbow to the tips of the fingers, holding the fingers and wrist in a flexed and relaxed flexed position. These splints were maintained throughout the hospitalization. He was followed by Orthopedic Surgery. He is noted to have decreased-to- absent sensation at his right median nerve, with intact sensation of the left median ulnar nerves. Postoperatively, he developed significant pain and agitation, and required frequent IV Dilaudid, along with a Precedex drip. We were able to titrate him off the Precedex drip, and control his pain and agitation with oral oxycodone, Dilaudid and Ativan. He is medically cleared today, and a Psych consult was obtained. He has been accepted at [facility] inpatient psych unit. DISPOSITION: Patient was discharged to [facility] inpatient psych unit in stable condition. FOLLOWUP: 1. Dr. Joya Dove in 1 week. He should wear his bilateral splints until seen by Orthopedic Surgery. 2. He will need ongoing psychiatric followup. DISCHARGE MEDICATIONS: Please see [facility] for complete updated outpatient medication list. New medications on discharge include: 1. Oxycodone 5-10 mg p.o. q.4 hours p.r.n., #30, no refills. 2. Gabapentin 300 mg p.o. three times daily, #90, no refills. 3. Ativan 0.5-1 mg p.o. q.6 hours p.r.n., #30, no refills. /[id number]/MODL MTDD
[2016-07-08] MEDS: LORazepam 1 MG TAB PO PRN ×3 (00:29→20:55)
[2016-07-08] MEDS: oxyCODONE IR 5 MG TAB PO PRN ×6 (01:19→21:40)
[2016-07-08] MEDS: SENNOSIDES/DOCUSATE SODIUM TAB PO SCH ×2 (08:07→20:36)
[2016-07-08] MEDS: GABAPENTIN 300 MG CAP PO SCH ×3 (08:07→21:16)
--- NOTE | 2016-07-08 09:38 | TRAUMAPN ---
Assessment/Plan: no new complaints overnight. notes pain in arms when ambulating/dependent position. afebrile. comfortable. BUE splints intact. heart regular. lungs clear. abd soft, nontender. normal BLE. doing well medically. awaiting psych disposition. Objective: Vital Signs Temp Pulse Resp BP Pulse Ox 36.9 C 84 16 113/86 H 100 07/08/16 07:24 07/08/16 07:24 07/08/16 07:24 07/08/16 07:24 07/08/16 07:24 Laboratory Results 07/07/16 05:15 07/07/16 07/08/16 07/09/16 05:59 05:59 05:59 Intake Total 2424.7 1254 Output Total 300 800 Balance 2124.7 454 - C-Spine Clearance Cervical Spine Cleared: Yes Provider who Cleared Cervical Spine: Dr. Otero
--- NOTE | 2016-07-08 16:02 | HOSPPROG ---
Hospitalist Progress Note Assessment/Plan: Suicide attempt - required extensive surgery for b/l flexor tendon injuries and ulnar artery ligation. POD #3. Required Precedex for sedation post-operatively , since weaned off. -cont oral oxy, prn dilaudid, gabapentin for pain control -medically clear for inpt psych transfer, will need surgical f/u for wounds. discussed with Dr. Dove, ok to dc and f/u in his clinic in a week. Acute blood loss anemia - Hgb trended down to 8.2, hemodynamically stable, no transfusion needs Leukocytosis - likely stress reaction, trending down, no e/o infection. Monitor. Full code Dispo - awaiting psych placement Subjective: Pt doing a little better every day. Mom at bedside. Still with intermittent pulsating pain. Objective: Vital Signs Temp Pulse Resp BP Pulse Ox 36.9 C 84 16 113/86 H 100 07/08/16 07:24 07/08/16 07:24 07/08/16 07:24 07/08/16 07:24 07/08/16 07:24 Laboratory Results 07/07/16 05:15 07/07/16 07/08/16 07/09/16 05:59 05:59 05:59 Intake Total 2424.7 1254 Output Total 300 800 Balance 2124.7 454 - Physical Exam Constitutional: no apparent distress Eyes: PERRL Ears, Nose, Mouth, Throat: moist mucous membranes Cardiovascular: regular rate and rhythym Respiratory: no respiratory distress Gastrointestinal: normoactive bowel sounds, soft, non-tender abdomen Skin: warm Musculoskeletal: other (decreased sensation right median nerve distribution) Neurologic: AAOx3 Psychiatric: interacting appropriately, depressed, flat affect ICD10 Worksheet Patient Problems: Problems Problem Status Onset Multiple lacerations Acute Self-inflicted laceration of wrist Acute Suicide ideation Acute Tendon laceration Acute
[2016-07-08] MEDS: ACETAMINOPHEN 325 MG TAB PO PRN (20:36)
[2016-07-09] MEDS: ZOLPIDEM TARTRATE 5 MG TAB PO PRN (00:33)
--- NOTE | 2016-07-09 07:54 | TRAUMAPN ---
Assessment/Plan: no new complaints overnight. notes pain in arms when ambulating/dependent position still - controlled with meds. awaiting dispo. afebrile. comfortable. BUE splints intact. heart regular. lungs clear. abd soft, nontender. normal BLE. doing well medically. awaiting psych disposition. per Dr. Dove, unable to use hands or replace splints until seen in office for custom molds in 1-2 weeks. Objective: Vital Signs Temp Pulse Resp BP Pulse Ox 37.2 C 73 16 143/71 H 100 07/08/16 20:00 07/08/16 20:00 07/08/16 20:00 07/08/16 20:00 07/08/16 20:00 Laboratory Results 07/07/16 05:15 07/08/16 07/09/16 07/10/16 05:59 05:59 05:59 Intake Total 1254 2600 Output Total 800 Balance 454 2600 - C-Spine Clearance Cervical Spine Cleared: Yes Provider who Cleared Cervical Spine: Dr. Otero
--- NOTE | 2016-07-09 08:20 | HOSPPROG ---
Hospitalist Progress Note Assessment/Plan: Suicide attempt - required extensive surgery for b/l flexor tendon injuries and ulnar artery ligation. POD #4. Required Precedex for sedation post-operatively , since weaned off. -cont oral oxy, prn dilaudid, gabapentin for pain control -medically clear for inpt psych transfer, will need surgical f/u for wounds. discussed with Dr. Dove, ok to dc and f/u in his clinic in a week. -cont b/l splints Depression - profoundly depressed. Needs psych placement, but this is held up due to his inability to care for himself with b/l arm splints -inpt psychiatry consult today -CM working on placement options -cont suicide precautions, one on one supervision Acute blood loss anemia - Hgb trended down to 8.2, hemodynamically stable, no transfusion needs Leukocytosis - likely stress reaction, trending down, no e/o infection. Monitor. Full code Dispo - awaiting psych placement Subjective: Pt severely depressed, stares at the ceiling, not very interactive, but tears rolling down his face. Apathetic. Flat. Pain 6/10. Objective: Vital Signs Temp Pulse Resp BP Pulse Ox 37.2 C 73 16 143/71 H 100 07/08/16 20:00 07/08/16 20:00 07/08/16 20:00 07/08/16 20:00 07/08/16 20:00 Laboratory Results 07/07/16 05:15 07/08/16 07/09/16 07/10/16 05:59 05:59 05:59 Intake Total 1254 2600 Output Total 800 Balance 454 2600 - Physical Exam Constitutional: no apparent distress Eyes: PERRL Ears, Nose, Mouth, Throat: moist mucous membranes Cardiovascular: regular rate and rhythym Respiratory: no respiratory distress Gastrointestinal: normoactive bowel sounds, soft, non-tender abdomen Skin: warm Musculoskeletal: other (decreased sensation right median nerve distribution, b/ l splints/bandages to forearms) Neurologic: AAOx3 Psychiatric: depressed, flat affect ICD10 Worksheet Patient Problems: Problems Problem Status Onset Multiple lacerations Acute Self-inflicted laceration of wrist Acute Suicide ideation Acute Tendon laceration Acute
[2016-07-09] MEDS: oxyCODONE IR 5 MG TAB PO PRN ×4 (09:02→23:05)
[2016-07-09] MEDS: GABAPENTIN 300 MG CAP PO SCH ×3 (09:02→22:39)
[2016-07-09] MEDS: SENNOSIDES/DOCUSATE SODIUM TAB PO SCH ×2 (09:03→19:51)
[2016-07-09] MEDS: CYCLOBENZAPRINE 10 MG TAB PO PRN ×2 (10:38→17:51)
[2016-07-09] MEDS: LORazepam 1 MG TAB PO PRN ×2 (12:26→19:53)
--- NOTE | 2016-07-09 19:47 | BCON ---
[f rep st] BEHAVIORAL HEALTH CONSULTATION PSYCHIATRIC CONSULTATION. 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 CONSULTATIVE REQUEST: Psychiatry was asked to consult on the patient for consideration of psychoactive medication for his complaints of an acute syndromal depression. 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 The patient has been treated remotely between ages 14 and 16 on an outpatient basis while in high school in [place]. Treatment consisted primarily of antidepressant medication and minimal supportive psychotherapy. The patient has remained untreated for the past 4 years but continued to experience intermittent neuro-vegetative episodes of depression including suicidal thinking. While patient had a history of some self- inflicted cutting behaviors as a teenager, he has denied any lethally intended suicide attempt until the present episode. Patient moved into his recent girlfriend's apartment 4 months ago after an initial courtship. He states he began to experience girlfriend becoming more detached after 4-6 weeks of living together. He states that his feelings for her are more serious than he had experienced in previous relationships because she was "my best friend" before his becoming romantically attached. He continued to experience her progressive detachment through to the depressive crisis and suicide attempt. On the day of his suicide attempt, he and his girlfriend had a verbal argument. She said she no longer cared for him and needed to separate. In the context of the argument, she left the apartment abruptly. The patient's affective pain reached crisis proportions. He had been drinking and apparently consumed a pint of whiskey after she left, took 12 tablets of oxycodone-size unclear, and 3 Vicodin tablets. Following the intake , the patient acted on suicidal thoughts to slash his wrists and his groin. He apparently bled profusely and passed out. When he awakened in the bath tub, visualized the bright red blood, he initiated a call to 911 for help and was brought by ambulance to the emergency room. HOSPITAL COURSE: In the emergency room, the patient presented as alert and oriented and able to give a narrative history. His groin laceration was repaired by suturing in the emergency room. He was seen in emergent surgical consultation and taken to the operating room to repair the deep lacerations which severed wrist flexors bilaterally as well as a median nerve on the left and question ulnar nerve. Following his surgery, he was admitted to the medical service in the ICU. He initially presented with acute pain and agitation. The patient required IV Dilaudid with a Precedex drip. He eventually weaned to p.o. oxycodone, p.o. Dilaudid, p.o. Ativan for pain control. His mental status cleared to full alertness and lucidity. He was seen by [facility] for psychiatric consultation on 07/07. Information obtained was consistent with the above referenced database. The patient was accepted for an inpatient bed at [facility]. However, his discharge and admission to [facility] was delayed despite his medical clearance as he was unable to independently self-care. Both arms have been plaster splinted from elbow to fingertips and he is unable to dress, feed, and toilet himself. This level of care was not supportable on the acute inpatient psychiatry service where he is currently been wait-listed. OTHER INTAKE DATA: The patient became essentially a daily drinker in his teenage years which has continued to the present time. The patient also uses THC on a regular basis. There is a maternal pedigree for syndromal depression affecting mother, several maternal aunts, and a question maternal grandmother. The parents when the patient was age 1 and patient did see his father on a regular basis during childhood into mid teens but father has been absent in the patient's life for the past 6-7 years. CURRENT MEDICATIONS: Include Neurontin 300 mg p.o. t.i.d., Ativan 0.5-1 mg p.o. /IVT p.r.n., and Ambien 10 mg p.o. h.s. p.r.n. MENTAL STATUS EXAM: The patient presents as a young adult male, who is fully alert, lucid, oriented x4. He is relatively calm, cooperative, and conversant in the session. He appears to be openly disclosing, reality focused in describing the course of his present illness as well as chronic history of recurrent episodic depressions. He expresses some ambivalence about having survived his suicide attempt but acknowledges he called 911 because he wished help and is ready to invest in his medical and psychiatric rehabilitation. He understands he will require inpatient psychiatric care and followup community care and is agreeable to pursue this. Medications were discussed. The patient does not recall his response to taking Wellbutrin as a teenager but he does remember side effect problems with Prozac. He accepts my suggestion that we begin a trial of Wellbutrin currently. Patient currently denies suicidal ideation but does acknowledge it has been a recurring phenomenon on a long-term basis and more driven in the 2-3 month history of this emerging depression. Mother is currently visiting the patient and describes a history consistent with the above narrative. She states her son was reluctant to take medication when treated with antidepressants in his teenage years and thinks his use of medications when prescribed was inconsistent. She is empathic and supportive of her son and endorses a medication trial and psychiatric treatment going forward. 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 DIAGNOSTIC IMPRESSION: 1. Major Depressive Disorder-chronic in duration; recurrent in pattern; current exacerbation of 3 months' duration to crisis proportions and lethally intended suicide attempt prior to admission; the patient is currently not an imminent suicide risk in the hospital; is nonpsychotic. 2. Alcohol Use Disorder: Patient has been a daily drinker for 4 years; he states he does not always drink to a level of intoxication but does experience intoxication multiple times per week on a longer-term basis. 3. THC Use Disorder-chronic in duration; moderate in severity; active prior to admission. RECOMMENDATIONS: 1. Will initiate Wellbutrin SR 100 mg daily; recommend increase to 200 mg q.a.m. on 4th dosing day. 2. Agree with maintaining patient on an M1 hold through his discharge and admission to an inpatient psychiatry service. Thank you for the interesting consultation; I can be reached at [phone] for any questions. /[id number]/MODL MTDD
[2016-07-09] MEDS: ACETAMINOPHEN 325 MG TAB PO PRN (19:51)
[2016-07-10] MEDS: oxyCODONE IR 5 MG TAB PO PRN ×6 (03:53→23:50)
[2016-07-10] MEDS ORDERED: BISACODYL 5 MG EC TAB PO PRN (10:37)
[2016-07-10] MEDS ORDERED: BISACODYL 5 MG EC TAB PO ONE (10:37)
[2016-07-10] MEDS: SENNOSIDES/DOCUSATE SODIUM TAB PO SCH ×2 (10:49→20:22)
[2016-07-10] MEDS: GABAPENTIN 300 MG CAP PO SCH ×4 (10:49→20:22)
[2016-07-10] MEDS: ACETAMINOPHEN 325 MG TAB PO PRN ×2 (10:49→23:06)
[2016-07-10] MEDS: buPROPion SR 100 MG TAB PO SCH (10:49)
--- NOTE | 2016-07-10 12:41 | SOAPPROG ---
SOAP Progress Note Assessment/Plan: Assessment: Plan: - will follow, d/c when placement is found 07/10/16 12:39 Subjective: Reported severe Left hand pain, improved when splint loosened. No other issues Objective: Vital Signs Temp Pulse Resp BP Pulse Ox 36.4 C 69 14 121/82 H 98 07/10/16 10:47 07/10/16 10:47 07/10/16 10:47 07/10/16 10:47 07/10/16 10:47 Laboratory Results 07/07/16 05:15 07/09/16 07/10/16 07/11/16 05:59 05:59 05:59 Intake Total 2600 240 Balance 2600 240 Splints clean dry, good condition, NVI both hands, 2 sec cap refill. Numbness of 5th finger L hand - Time Spent With Patient Time Spent With Patient: 15 - Pending Discharge Pending Discharge Within 48 Hours: Yes Pending Discharge Date: 07/12/16 Pending Discharge Time: 11:00 ICD10 Worksheet Patient Problems: Problems Problem Status Onset Multiple lacerations Acute Self-inflicted laceration of wrist Acute Suicide ideation Acute Tendon laceration Acute
[2016-07-10] MEDS: LORazepam 1 MG TAB PO PRN ×2 (13:01→19:05)
--- NOTE | 2016-07-10 14:53 | PDINTPN ---
Tail Board Man Progress Note Assessment/Plan: Assessment/plan: 21 M with history of depression s/p suicide attempt with wrist lacerations- resulting in extensive tendon and nerve damage. * Wrist lacs- currently stable in splints and extensive dressing * Depression- started Wellbutrin today. remains withdrawn and awaiting inpatient placement soon. * * Objective: Vital Signs Temp Pulse Resp BP Pulse Ox 36.4 C 69 14 121/82 H 98 07/10/16 10:47 07/10/16 10:47 07/10/16 10:47 07/10/16 10:47 07/10/16 10:47 Laboratory Results 07/07/16 05:15 07/09/16 07/10/16 07/11/16 05:59 05:59 05:59 Intake Total 2600 240 Balance 2600 240 Physical Exam - Physical Exam General Appearance: alert, no apparent distress, other (withdrawn, but cooperative) EENT: PERRL/EOMI Neck: non-tender Respiratory: lungs clear, normal breath sounds, No respiratory distress, No rales, No rhonchi Cardiac/Chest: normal peripheral pulses, regular rate, rhythm, No edema Abdomen: normal bowel sounds, non-tender, soft, No distended Skin: normal color, warm/dry, No cyanosis Extremities: other (extensive bilateral distal UE dressing- clean and dry; not removed) Neuro/Psych: alert, oriented x 3 ICD10 Worksheet Patient Problems: Problems Problem Status Onset Multiple lacerations Acute Self-inflicted laceration of wrist Acute Suicide ideation Acute Tendon laceration Acute
--- NOTE | 2016-07-10 17:19 | TRAUMAPN ---
Assessment/Plan: 21yo M s/p B wrist lacerations, suicide attempt. S/p repair of B flexor tendons , R median nerve, L ulnar nerve and transection of L ulnar artery. Depression - started on Wellbutrin per psych BUE splints x [address] Dove Dispo: pending placement. Inpatient psych facilities denying transfer due to his high level of dependence on ADLs. Seen c Dr. Estrada. S: sleeping comfortably O: laying in bed sleeping, comfortable, NAD, mother at bedside CTAB, no increased WOB RRR BUE splints intact Objective: Vital Signs Temp Pulse Resp BP Pulse Ox 36.4 C 69 14 121/82 H 98 07/10/16 10:47 07/10/16 10:47 07/10/16 10:47 07/10/16 10:47 07/10/16 10:47 Laboratory Results 07/07/16 05:15 07/09/16 07/10/16 07/11/16 05:59 05:59 05:59 Intake Total 2600 740 Balance 2600 740 - C-Spine Clearance Cervical Spine Cleared: Yes Provider who Cleared Cervical Spine: Dr. Otero
--- NOTE | 2016-07-10 18:26 | HOSPPROG ---
Hospitalist Progress Note Assessment/Plan: Assessment: 21-year-old male presents with acute suicide attempt Plan: 1. Suicide attempt. Required extensive surgery for b/l flexor tendon injuries and ulnar artery ligation. POD #5. Required Precedex for sedation post- operatively, since weaned off. - cont oral oxy (increased dose range), prn dilaudid, gabapentin for pain control (increased HS dose to 600mg) - medically clear for inpt psych transfer, will need surgical f/u for wounds. discussed with Dr. Dove, ok to dc and f/u in his clinic in a week. - cont b/l splints - unable to complete ADLs while in casts (will be for several weeks), so d/w case mgmt whether his mother could asst at [facility]PT [facility] w/ feeding, etc., awaiting response 2. Major Depressive Disorder. Appreciate psych consult by Dr. Paulson - remain on M1 hold - initiated Wellbutrin 100mg, uptitrate to 200mg on D#4 - approp for INPT PSYCH when able to support physically 3. Acute blood loss anemia . Hgb trended down to 8.2, hemodynamically stable, no transfusion needs Diet. Regular Code. Full PPx. SCDs Dispo. Psych placement when physically able to asst w/ ADLs Subjective: Patient reports ongoing pain, short-term relief, awoke from sleep at 3:30 a.m. to receive oxycodone and Ativan, counseled patient and mother regarding attempts to improve pain control, attempts to provoked bowel movement today, need for physical assistance at inpatient psych Objective: Vital Signs Temp Pulse Resp BP Pulse Ox 36.4 C 69 14 121/82 H 98 07/10/16 10:47 07/10/16 10:47 07/10/16 10:47 07/10/16 10:47 07/10/16 10:47 Laboratory Results 07/07/16 05:15 07/09/16 07/10/16 07/11/16 05:59 05:59 05:59 Intake Total 2600 740 Balance 2600 740 - Time Spent With Patient Time Spent with Patient: greater than 35 minutes Time Spent with Patient: Greater than 35 minutes spent on this patients care, greater than 50% of time spent counseling, educating, and coordinating care regarding the above mentioned plan. - Pending Discharge Pending Discharge Within 24 Hours: Yes Pending Discharge Date: 07/11/16 Pending Discharge Time: 11:00 - Physical Exam Constitutional: no apparent distress, appears nourished, No not in pain (Pain in our) Cardiovascular: other (Cap refill bilateral fingers) Neurologic: AAOx3, sensation intact bilaterally (Paresthesias in distal right fingers), weakness (Right fingers) Psychiatric: not encephalopathic, depressed, flat affect ICD10 Worksheet Patient Problems: Problems Problem Status Onset Multiple lacerations Acute Suicide ideation Acute Tendon laceration Acute Self-inflicted laceration of wrist Acute
[2016-07-10] MEDS: ZOLPIDEM TARTRATE 5 MG TAB PO PRN (20:22)
[2016-07-10] MEDS: IBUPROFEN 600 MG TAB PO PRN (23:50)
[2016-07-11] MEDS: ZOLPIDEM TARTRATE 5 MG TAB PO PRN (02:23)
[2016-07-11] MEDS: oxyCODONE IR 5 MG TAB PO PRN ×5 (09:29→23:29)
[2016-07-11] MEDS: GABAPENTIN 300 MG CAP PO SCH ×4 (09:29→20:55)
[2016-07-11] MEDS: IBUPROFEN 600 MG TAB PO PRN ×3 (09:30→21:54)
[2016-07-11] MEDS: SENNOSIDES/DOCUSATE SODIUM TAB PO SCH ×2 (09:30→20:55)
[2016-07-11] MEDS: buPROPion SR 100 MG TAB PO SCH (09:30)
--- NOTE | 2016-07-11 13:07 | SOAPPROG ---
SOAP Progress Note Assessment/Plan: Assessment: Plan: Subjective: vss,af boh arms wrapped in valeria and spints. lungs clear, heart nml abd soft access- suicide risk, needs help with ADL because of wrist injuries, psyche inpt transfer when they will accept him. Objective: Vital Signs Temp Pulse Resp BP Pulse Ox 36.7 C 69 16 138/73 H 99 07/11/16 09:19 07/11/16 09:19 07/11/16 09:19 07/11/16 09:19 07/11/16 09:19 Laboratory Results 07/07/16 05:15 07/10/16 07/11/16 07/12/16 05:59 05:59 05:59 Intake Total 1939 Balance 194 ICD10 Worksheet Patient Problems: Problems Problem Status Onset Multiple lacerations Acute Self-inflicted laceration of wrist Acute Suicide ideation Acute Tendon laceration Acute
--- NOTE | 2016-07-11 13:28 | GHP ---
[f rep st] PREOP HISTORY AND PHYSICAL DATE OF ADMISSION: 07/05/2016 PREOPERATIVE DIAGNOSIS: Hemoperitoneum. POSTOPERATIVE DIAGNOSES: 1. Small-bowel mesenteric avulsion. 2. Meckel diverticulum. 3. Incarcerated umbilical hernia. PLASTIC SURGERY SPECIALIST: Migdalia Estrada MD INDICATIONS: Patient is a 21-year-old Actually that is all wrong. Everything I gave you is wrong. I'll just hang up and dial with some r ight numbers. REPORT CANCELLED /[id number]/MODL
[2016-07-11] MEDS: ACETAMINOPHEN 325 MG TAB PO PRN ×2 (13:37→20:55)
--- NOTE | 2016-07-11 14:06 | HOSPPROG ---
Hospitalist Progress Note Assessment/Plan: Assessment: 21-year-old male presents with acute suicide attempt Plan: 1. Suicide attempt. Required extensive surgery for b/l flexor tendon injuries and ulnar artery ligation. POD #5. Required Precedex for sedation post- operatively, since weaned off. - cont oral oxy (cont increased dose range), prn dilaudid, gabapentin for pain control (increased HS dose to 600mg, tolerating well) - medically clear for inpt psych transfer, will need surgical f/u for wounds w/ Dr. Dove - cont b/l splints - unable to complete ADLs while in casts (will be for several weeks), so d/w case mgmt whether his mother could asst at [facility] w/ feeding, etc., awaiting response 2. Major Depressive Disorder. Appreciate psych consult by Dr. Paulson - remain on M1 hold, reordered - initiated Wellbutrin 100mg, uptitrate to 200mg on D#4 - approp for INPT PSYCH when able to support physically 3. Acute blood loss anemia. Hgb trended down to 8.2, hemodynamically stable, no transfusion needs Diet. Regular Code. Full PPx. SCDs Dispo. Psych placement when physically able to asst w/ ADLs Subjective: Patient reports pain management improved from day prior, bowel movement this morning Objective: Vital Signs Temp Pulse Resp BP Pulse Ox 36.7 C 69 16 138/73 H 99 07/11/16 09:19 07/11/16 09:19 07/11/16 09:19 07/11/16 09:19 07/11/16 09:19 Laboratory Results 07/07/16 05:15 07/10/16 07/11/16 07/12/16 05:59 05:59 05:59 Intake Total 1939 Balance 1939 - Physical Exam Constitutional: no apparent distress, appears nourished, not in pain Cardiovascular: regular rate and rhythym, no murmur, rub, or gallop, other ( Normal cap refill bilateral thumb) Respiratory: no respiratory distress, no rales or rhonchi, clear to auscultation Gastrointestinal: normoactive bowel sounds, soft, non-tender abdomen, no palpable masses Neurologic: AAOx3, No sensation intact bilaterally (Paresthesias in right index finger and right thumb), No weakness (Movement present in bilateral thumbs) Psychiatric: not anxious, not encephalopathic, thought process linear, flat affect, No agitated ICD10 Worksheet Patient Problems: Problems Problem Status Onset Multiple lacerations Acute Suicide ideation Acute Tendon laceration Acute Self-inflicted laceration of wrist Acute
[2016-07-11] MEDS: LORazepam 1 MG TAB PO PRN ×2 (17:11→23:29)
[2016-07-11 19:40] VITALS: O2SAT 100
[2016-07-12] MEDS: SENNOSIDES/DOCUSATE SODIUM TAB PO SCH (09:57)
[2016-07-12] MEDS: buPROPion SR 100 MG TAB PO SCH (09:57)
[2016-07-12] MEDS: IBUPROFEN 600 MG TAB PO PRN (09:57)
[2016-07-12] MEDS: oxyCODONE IR 5 MG TAB PO PRN ×2 (09:57→13:47)
[2016-07-12] MEDS: GABAPENTIN 300 MG CAP PO SCH (09:58)
[2016-07-12 10:04] VITALS: BP 128/76; PULSE 78; RESP 14; TEMP 97.7
[2016-07-12] MEDS: ACETAMINOPHEN 325 MG TAB PO PRN (13:07)
[2016-07-12] MEDS: LORazepam 1 MG TAB PO PRN (13:07)
--- NOTE | 2016-07-12 13:51 | PDIAF ---
- Diagnosis Diagnosis: Suicide Attempt Code Status: Full Code - Medication Management Discharge Medications: Medications to Continue on Transfer Bisacodyl [Bisacodyl (*)] 5 mg PO PRN PRN #0 tab 07/12/16 [Last Taken Unknown] Gabapentin [Neurontin 300 MG (*)] 300 mg PO HS cap 07/12/16 [Last Taken Unknown ] Gabapentin [Neurontin 300 MG (*)] 300 mg PO TID cap 07/12/16 [Last Taken Unknown] Ibuprofen [Motrin (*)] 600 mg PO Q6HRS PRN #0 tab 07/12/16 [Last Taken Unknown] Polyethylene Glycol 3350 [Miralax 17 gm (*)] 17 gm PO DAILY PRN #0 pkt 07/12/16 [Last Taken Unknown] Sennosides/Docusate Sodium [Senokot-S] 1 - 2 tab PO BID tab 07/12/16 [Last Taken Unknown] buPROPion SR [Wellbutrin 100mg SR (*)] 100 mg PO DAILY tab 07/12/16 [Last Taken Unknown] oxyCODONE IR [Oxycodone Ir (*)] 5 - 20 mg PO Q4HRS PRN #0 tab 07/12/16 [Last Taken Unknown] Chief Commercial Officer Antibiotics: NA Discharge Medications: Refer to the Discharge Home Medication list for PRN reason. PICC Care - Routine: N/A - Orders Services needed: Registered Nurse Diet Recommendation: no restrictions on diet Garcia: Not applicable Wound Care Instructions: keep casts on x 2 weeks, will be reassessed by Dr. Dove at clinic appointment - Follow Up Care Current Providers and Referrals: Patient,NotPresent [Unknown] - As per Instructions Joya Dove MD [Medical Doctor] - 3-5 days (please schedule)
--- NOTE | 2016-07-12 13:58 | PDDCSUM ---
Discharge Summary Discharge Summary: DISCHARGE SUMMARY FOLLOW-UP ITEMS: Follow up with Dr. Dove next week DATE OF ADMISSION: 07/05/16 DATE OF DISCHARGE: 07/12/2016 DISCHARGE DIAGNOSES: 1. Acute suicide attempt 2. Bilateral flexor tendon lacerations and ulnar artery ligation 2. Major depressive disorder 3. Acute blood loss anemia CONSULTATIONS: Trauma, hand surgery by Dr. Dove PROCEDURES / IMAGING: Right wrist tendon repair of index finger FDS, middle finger FDS, ring finger FDS, medial nerve repair with open carpal tunnel release in left-sided middle finger FDS, ring finger FDS repair with flexor carpi ulnaris repair, debridement of ulnar nerve, ligation of ulnar artery, open carpal tunnel release CHIEF COMPLAINT: Acute self lacerations SUBJECTIVE: Patient is feeling well at time discharge, pain is well controlled PHYSICAL EXAM ON DISCHARGE: Systolic blood pressure and heart rate are normal, sensation is reduced subjectively in the right index finger and thumb, has motion in bilateral fingers, good cap refill bilateral thumbs LABS ON DISCHARGE: Hemoglobin 8.2 HOSPITAL COURSE BY PROBLEM: The patient cut extensively on both of his forearms was admitted to the intensive care unit after he was taken to the operating room by Dr. Dove where he underwent right wrist tendon repair of the index finger, middle finger, ring finger flexor digitorum superficialis as well as median nerve repair on the right with open carpal tunnel release, left-sided middle and ring finger tendon repair of the flexor digitorum superficialis with repair of the flexor carpi ulnaris tendon, debridement of the ulnar nerve, ligation of the ulnar artery, open carpal tunnel release. He was placed in bilateral dorsal plaster splints from the elbow to the tips of his fingers, holding the fingers and wrist in a flexed and relaxed flexed position. This was maintained throughout hospitalization and will most likely remain in place for 2 weeks. Should have outpatient follow up with Dr. Dove next week. He does have paresthesias at the distribution of the right median nerve with intact sensation in the left medium and ulnar nerves. His pain has been well controlled with a combination of oxycodone, ibuprofen, gabapentin. He was seen in consultation by Dr. Paulson and was initiated on Wellbutrin. Wellbutrin should be up titrated to 100 mg beginning tomorrow. The patient's hospitalization was extended secondary to inability to care for self secondary to bilateral upper extremities being placed in flexed splints. Our nursing and case management staff worked with inpatient Behavioral Health to provide them with care instructions moving forward. DISCHARGE MEDICATIONS: Please see official discharge medication reconciliation sheet in chart , oxycodone immediate release 5-20 mg as needed, ibuprofen as needed, gabapentin 300 mg in the morning, 300 mg in the afternoon, 600 mg at night, Wellbutrin 200 mg daily to start tomorrow. DISCHARGE INSTRUCTIONS: Please schedule follow-up with Dr. Dove next week. TIME SPENT: Greater than 30 minutes were spent on direct patient care, as well as discharge planning and preparation.
--- NOTE | 2016-07-12 14:32 | SOAPPROG ---
SOAP Progress Note Assessment/Plan: Assessment: Plan: - will follow, d/c when placement is found 07/10/16 12:39 Subjective: Pain improving, getting better at ADLs Objective: Vital Signs Temp Pulse Resp BP Pulse Ox 36.5 C 78 14 128/76 H 100 07/12/16 10:03 07/12/16 10:03 07/12/16 10:03 07/12/16 10:03 07/12/16 10:03 Laboratory Results 07/07/16 05:15 07/11/16 07/12/16 07/13/16 05:59 05:59 05:59 Intake Total 1940 1500 700 Balance 1940 1500 700 NVI, splints in good contition, - Time Spent With Patient Time Spent With Patient: 10 - Pending Discharge Pending Discharge Within 24 Hours: No Pending Discharge Within 48 Hours: No ICD10 Worksheet Patient Problems: Problems Problem Status Onset Multiple lacerations Acute Self-inflicted laceration of wrist Acute Suicide ideation Acute Tendon laceration Acute
--- NOTE | 2016-07-12 15:39 | TRAUMAPN ---
Assessment/Plan: 21yo M s/p Addi arm washout and tendon repair for self-inflicted SW to both forearms - Neuro: Pain now controlled on orals, Does have sensation in BUE L>R, moving all fingers L>R - Pulm: on min NC, aggressive IS. Lungs overall clear - CV: HDS, NSR - Abd: soft, nondistended, nontender. Reg diet. Bowel regimen, having bowel function. - Renal: UOP appropriate, Cr stable - Hb: Stable - ID: [email or web address] - Dispo: Discharg planned for today, I see no reason not to proceed from trauma surgical standpoint. F/u c orthopedics Subjective: Sitting in chair, denies pain. Tolerating regular diet Objective: Vital Signs Temp Pulse Resp BP Pulse Ox 36.5 C 78 14 128/76 H 100 07/12/16 10:03 07/12/16 10:03 07/12/16 10:03 07/12/16 10:03 07/12/16 10:03 Laboratory Results 07/07/16 05:15 07/11/16 07/12/16 07/13/16 05:59 05:59 05:59 Intake Total 1939 1500 700 Balance 1940 1500 700 - C-Spine Clearance Cervical Spine Cleared: Yes Provider who Cleared Cervical Spine: Dr. Otero
== END 2016-07-12 16:00 | DRG 501 ==
LOC: EDUNIT# → EEVIPCON 14:07 → F2N 14:59 → OBSVTOIN 15:37 → F2N 07-06 17:28
PROVIDERS: ADMIT Hospitalist; ATTEND Internal Medicine
DX: S66.120A Laceration of flexor muscle, fascia and tendon of right index finger at wrist and hand level, initial encounter (principal); S66.122A Laceration of flexor muscle, fascia and tendon of right middle finger at wrist and hand level, initial encounter; S66.124A Laceration of flexor muscle, fascia and tendon of right ring finger at wrist and hand level, initial encounter; S64.11XA Injury of median nerve at wrist and hand level of right arm, initial encounter; S66.123A Laceration of flexor muscle, fascia and tendon of left middle finger at wrist and hand level, initial encounter; S66.125A Laceration of flexor muscle, fascia and tendon of left ring finger at wrist and hand level, initial encounter; S66.822A Laceration of other specified muscles, fascia and tendons at wrist and hand level, left hand, initial encounter; S65.012A Laceration of ulnar artery at wrist and hand level of left arm, initial encounter; S64.02XA Injury of ulnar nerve at wrist and hand level of left arm, initial encounter; S71.111A Laceration without foreign body, right thigh, initial encounter; X78.1XXA Intentional self-harm by knife, initial encounter; Y92.031 Bathroom in apartment as the place of occurrence of the external cause; Y99.8 Other external cause status; F33.2 Major depressive disorder, recurrent severe without psychotic features; D62 Acute posthemorrhagic anemia; F10.99 Alcohol use, unspecified with unspecified alcohol-induced disorder; F12.90 Cannabis use, unspecified, uncomplicated
CPT/HCPCS: 80305; 96374; 97116-GP; 97162-GP; 97163-GP; 97166-GO; 97530-GO; 97530-GP; 97535-GO; G0480; J0690; J1100; J1170; J2001; J2250; J2405; J2704; J3010

== ENCOUNTER 2016-07-12 16:35 | Inpatient (IN) | payer OTHER ==
[2016-07-12] MEDS ORDERED: MAG HYDROX/AL HYDROX/SIMETH 30 ML UDCUP PO PRN (17:08)
[2016-07-12] MEDS ORDERED: BISACODYL 5 MG EC TAB PO PRN (17:14)
[2016-07-12] MEDS ORDERED: POLYETHYLENE GLYCOL 3350 17 GM PKT PO PRN (17:14)
[2016-07-12] MEDS: GABAPENTIN 300 MG CAP PO SCH ×2 (17:30→21:34)
[2016-07-12] MEDS: ACETAMINOPHEN 325 MG TAB PO PRN ×2 (17:30→21:33)
[2016-07-12] MEDS: oxyCODONE IR 5 MG TAB PO PRN ×2 (17:30→21:33)
[2016-07-12] MEDS: LORazepam 0.5 MG TAB PO PRN (20:16)
[2016-07-12] MEDS: IBUPROFEN 600 MG TAB PO PRN (20:16)
[2016-07-12] MEDS ORDERED: GABAPENTIN 300 MG CAP PO SCH (21:00)
[2016-07-12] MEDS: SENNOSIDES 1 TAB PO SCH (21:33)
[2016-07-12] MEDS: DOCUSATE SODIUM 100 MG CAP PO SCH (21:33)
[2016-07-13] MEDS: ZOLPIDEM TARTRATE 5 MG TAB PO PRN (00:56)
[2016-07-13] MEDS: oxyCODONE IR 5 MG TAB PO PRN ×5 (01:38→20:09)
[2016-07-13] MEDS: LORazepam 0.5 MG TAB PO PRN ×2 (08:02→14:03)
[2016-07-13] MEDS: GABAPENTIN 300 MG CAP PO SCH ×3 (08:04→22:19)
[2016-07-13] MEDS: buPROPion SR 100 MG TAB PO SCH (08:04)
[2016-07-13] MEDS: DOCUSATE SODIUM 100 MG CAP PO SCH ×2 (08:04→20:09)
[2016-07-13] MEDS: SENNOSIDES 1 TAB PO SCH ×2 (08:05→20:09)
[2016-07-13] MEDS: ACETAMINOPHEN 325 MG TAB PO PRN ×4 (10:45→22:19)
[2016-07-13] MEDS ORDERED: MAGNESIUM HYDROXIDE 30 ML UDCUP PO PRN (15:37)
[2016-07-13] MEDS: LORazepam 1 MG TAB PO PRN ×2 (18:23→22:19)
[2016-07-13] MEDS: IBUPROFEN 600 MG TAB PO PRN (20:06)
--- NOTE | 2016-07-13 21:51 | BCON ---
[f rep st] BEHAVIORAL HEALTH CONSULTATION INTERNAL MEDICINE CONSULTATION DATE OF CONSULTATION: 07/13/2016 REFERRING PHYSICIAN: Dr. Paulson REASON FOR REFERRAL: Medical clearance for inpatient behavioral health stay. HISTORY OF PRESENT ILLNESS: The patient cut his wrists and was admitted to the [facility] on 07/05/2016. He underwent surgery to repair tendon lacerations and to ligate the ulnar artery on the right. Came through surgery well. He had considerable blood loss. He was placed in bilateral dorsal plaster splints from the elbow to the tips of the fingers. He had a consultation with occupational therapy while he was in the hospital and has learned how to take care of himself and his activities of daily living as much as he can. He was seen by Psychiatry and begun on Wellbutrin and discharge to the inpatient behavioral health unit was arranged. He currently is without any acute medical complaints. He has pain but he thinks he has adequate pain control and he has constipation from the pain medications. He reports that if he does not have a bowel movement tomorrow he will want a laxative. PAST MEDICAL HISTORY: He denies any history of any medical illnesses. He had depression diagnosed as a teenager. PAST SURGICAL HISTORY: He had mouth surgery after a fall in which he lost a tooth, and he has had wisdom teeth extraction. MEDICATIONS: Prior to admission, he was not on any medications. ALLERGIES: There are no known drug allergies. SOCIAL HISTORY: He is a former smoker. He drinks 1-2 beers a day. He has a history of marijuana use. 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 He recently broke up with his girlfriend. His parents live on the [facility]. FAMILY HISTORY: Noncontributory. REVIEW OF SYSTEMS: Other than as in HPI, a 10-point Review of Systems was conducted and was negative. PHYSICAL EXAM: VITAL SIGNS: Blood pressure was recorded at midnight at 175/ 101. At that time, pulse was recorded at 128, it is unclear if these were accurate as his previous blood pressures over the past several days are mostly in the 120s over 70s and his pulse was in the 60s to 80s. His respiratory rate was recorded as 14. Oxygen saturation was 90 on room air, which again is questionable as the previous day he was at 100% on room air. Temperature was recorded at 36.5 degrees centigrade. His weight is 81.6 kg for a body mass index of 21.9. GENERAL: This is a well-nourished, well-developed man, appears his chronologic age, cooperative, and in no acute distress. HEENT: Extraocular movements are intact. Pupils are equal, round, and reactive to light. Mucous membranes are moist. Dentition is in good condition. NECK: Supple. HEART: There is a regular rate and rhythm with no murmurs, rubs, or gallops. LUNGS: Clear to auscultation bilaterally. ABDOMEN: Soft, nontender , nondistended with normoactive bowel sounds. EXTREMITIES: He has bilateral splints from the elbows to the tips of his fingers held together with Mati wraps. There is no edema. His fingers are warm and mobile to the extent that they are exposed. NEUROLOGIC: Cranial nerves 2-12 are grossly intact. He is alert and oriented x3. There is no focal weakness. Sensation is intact to light touch. Gait is within normal limits. LABORATORY STUDIES: There are no new laboratory studies from his hospitalization. Most recent labs showed anemia on 07/07/2016, with a hemoglobin of 8.2 and hematocrit 24.3. He had an elevated white blood cell count of 10.05. There was no differential done. On 07/06 white blood cell count was 2.9 and there was no left shift. Serum chemistry on 07/05 revealed overall normal renal function and electrolytes but his CO2 was low at 20 and his glucose was high at 184. Toxicology screen on 07/05 was non-negative for opiates in the urine. It is not unlikely that he had been given opiates already in the hospital. Ethyl alcohol on admission on 07/05 was 166. ASSESSMENT/RECOMMENDATIONS: 1. Mental health issues. Pending further evaluation and management per Psychiatry and the mental health team. 2. Bilateral wrist lacerations. It is important that he makes his followup with Dr. Dove on Saturday the , and if he is still in the inpatient behavioral health unit at that time, that should be arranged for him. He has adequate pain medications for pain control and he has in fact not been using the oxycodone since yesterday afternoon. 3. Constipation due to opiate pain medications. As he is not currently using opiates or if his use is considerably reduced, the bowel regimen with senna and polyethylene glycol should be adequate. I will prescribe milk of magnesia, as that was what he reported he would prefer to take if he does not have a bowel movement tomorrow. I see no medical contraindications to the patient's continued stay on the inpatient behavioral health unit or to any psychiatric medications or procedures. Thank you very much for including me in the care of this patient, and please do not hesitate to contact me or the hospitalist service should there be need for further medical evaluation. /[id number]/MODL MTDD
[2016-07-14] MEDS: oxyCODONE IR 5 MG TAB PO PRN ×5 (00:19→22:16)
[2016-07-14] MEDS: ZOLPIDEM TARTRATE 5 MG TAB PO PRN (01:26)
[2016-07-14] MEDS: LORazepam 1 MG TAB PO PRN ×4 (07:35→22:20)
[2016-07-14] MEDS: SENNOSIDES 1 TAB PO SCH ×2 (07:41→21:15)
[2016-07-14] MEDS: GABAPENTIN 300 MG CAP PO SCH ×3 (07:42→21:15)
[2016-07-14] MEDS: buPROPion SR 100 MG TAB PO SCH (07:42)
[2016-07-14] MEDS: DOCUSATE SODIUM 100 MG CAP PO SCH ×2 (07:42→21:15)
[2016-07-14] MEDS: ACETAMINOPHEN 325 MG TAB PO PRN ×3 (10:00→23:36)
--- NOTE | 2016-07-14 15:27 | SOAPPROG ---
SOAP Progress Note Assessment/Plan: Assessment: Plan: 07/14/16 0800 DAY 3 Service 07/13 - Admission Evaluation - see transcribed Evaluation Objective: Vital Signs Temp Pulse Resp BP Pulse Ox 36.5 C 97 16 136/77 H 99 07/14/16 06:00 07/14/16 06:00 07/14/16 06:00 07/14/16 06:00 07/14/16 06:00 ICD10 Worksheet Patient Problems: Problems Problem Status Onset Multiple lacerations Acute Self-inflicted laceration of wrist Acute Suicide ideation Acute Tendon laceration Acute
--- NOTE | 2016-07-14 17:13 | BAPA ---
[f rep st] Amended report ADMISSION PSYCHIATRIC ASSESSMENT PATIENT IDENTIFICATION: The patient presents as a 21-year-old single, white male who was initially admitted via the [facility] Emergency Room to the ICU for complaints of a lethally intended suicide attempt by severe self-induced lacerations of his wrists bilaterally. The patient was not an identified psychiatric outpatient prior to admission. 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 The patient has had minimal previous treatment as referenced below. 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 He moved here sometime in the last 1-2 years. While he reports he has this chronic history of depression, he states he was relatively well when he 1st moved to [place]. He went to work full-time and developed a social network as well as began a friendship with a young woman which he said developed well initially as a platonic relationship. They experienced mutual romantic feelings and begin to live together in March of 2016. Shortly into the experience of cohabiting, the patient states he began to experience his girlfriend detaching in the relationship. This experience was both troubling and evocative of syndromal depression which progressed over the ensuing 3 months.The patient states he attempted on multiple occasions to discuss his distress with his girlfriend who remained relatively self-contained and noncommunicative with him about this. His depression progressed in intensity and he began to experience suicidal ideation. On the day of his suicide attempt, he and his girlfriend engaged in a verbal argument. He said she stated she no longer cared for him and needed to separate. She left the apartment abruptly to stay overnight with a friend. Patient's depressive state reached crisis proportions. He had been drinking and drank more excessively, consuming a pint of whiskey as well as took 12 tablets of oxycodone, dosing unclear, and 3 Vicodin tablets. He had had these opiate pain medications stored and unused for an extended period of time. The patient had been experiencing suicidal ideation which intensified to crisis proportions in the context of his pain on the day of his suicide attempt. In an intoxicated state , he acted on a plan to kill himself by slashing his wrists and stabbing himself in the groin. These self-inflicted wounds occurred while he was lying in the bathtub. He apparently passed out from a mix of intoxication and blood loss. He awoke later spontaneously, noted the profuse bleeding and redness in the bath water. He called 911 for help and was brought by ambulance to the emergency room. In the emergency room patient was alert and oriented and able to give a history consistent with the above information. His blood screens revealed a hemoglobin of 8.2 and hematocrit of 24.5, secondary to his acute exsanguination. His groin wound was sutured in the emergency room. He was seen in an emergent surgical consultation and taken to the operating room for emergency surgical intervention on his seriously damaged wrists. The bilateral deep lacerations had severed both wrist flexors as well as a median nerve on the left side and a question of an ulnar nerve injury. Following the emergent surgery he was admitted to the medical service in the ICU. As stated in my Consultation Note, he initially presented with acute pain and agitation and was treated with an IV dosing of Dilaudid and a Precedex drip. He was able to be weaned off over the 1st several days to p.o. oxycodone, p.o. Dilaudid, and p.o. Ativan for pain control and control of his agitation. His mental status cleared to full alertness and lucidity. He was seen in the initial psychiatric assessment by [facility] on July 07 and his depressive acuity was affirmed. He was accepted for inpatient transfer psychiatrically by the [facility]. However, he had lost the use of his upper extremities secondary to the severe wrist injuries and both arms were casted from the elbow to the fingertips. He was unable to perform ADLs and from an ADL perspective was a total care patient. Therefore, he was unable to be transferred to [facility]. I saw the patient in Psychiatric Consultation on 07/09/2016. I began the patient on initial dosing of Wellbutrin SR 100 mg q.a.m. He continued to be followed in the ICU. Because he was unable to be transferred as a psychiatric inpatient to [facility] for the reasons as referenced, Nursing was able to arrange staff coverage for his STEREOPTICIAN assistance needs which allowed the patient to be transferred on an M1 hold for admission to [address] [place] [address] and service in the .07/12 Patient's mental status on July 09 on my consultative assessment was positive for residual depressive syndromal acuity, passive suicidal ideation, absence of psychosis, and investment by the patient in addressing his psychiatric treatment needs. He was not seen as an imminent risk of self-harm in the hospital. PSYCHIATRIC HISTORY: The patient had been treated as an outpatient at age 14- 15 for his chronic depression as well as substance abuse problems with THC and alcohol. His outpatient treatment was relatively minimal. Patient reports he had 6 psychotherapeutic meetings on a monthly basis which were relatively ineffective. He also saw a psychiatrist q.3 months and was given a trial of Prozac, augmented by bupropion 6 months into his Prozac course. The patient states he had side effect problems with Prozac and cannot remember a clear response or the dosing amount of bupropion. He states both treatments stopped in less than 12 months. He did state that he went to AA meetings on a regular basis and did enjoy the group support associated with those contacts. He states that he remained off alcohol and marijuana for several months following the treatment, but then resumed use of both substances and has continued their use after moving to [place]. He does state he stopped using THC altogether shortly after the move to [place], but has continued to drink multiple times a week, at times to a state of intoxication. He has had no other incidents of psychiatric treatment. Patient denies any suicide attempts previously. He does state that he had a pattern of superficial cuttings on his forearms intermittently in his teenage years, but that that has not recurred since. MEDICAL HISTORY: Essentially noncontributory. Status post dental surgery for wisdom tooth extraction. KNOWN ALLERGIES: Patient has no known medication, environmental, or food allergies. MEDICAL REVIEW OF SYSTEMS: Essentially negative prior to the recent suicide attempt by wrist slashing; patient continues with significant residual pain which he describes as of 2 types "throbbing" as well as constancy of severe pain which he calls "nerve pain." SUBSTANCE ABUSE HISTORY: The patient became an abuser of alcohol in his late teenage years. He states this pattern has continued but also been controlled and that he drinks several times a week but not daily and does not always drink to intoxication. The patient states he was a daily marijuana user for a number of years, but has not used THC for 18 months. Patient denies any other abuse of substances. LEGAL HISTORY: The patient denies any current or past history. PERSONAL HISTORY/FAMILY HISTORY: The patient was born into a family consisting of his biologic parents. The patient is an only child. The patient's parents when he was an infant. He did have contact with his father relatively regularly in childhood and into his teenage years, but has not had contact with the father for 5+ years. He states he is extremely close to his mother and essentially was raised by his mother and his maternal grandparents. The patient reports he is also close to both sets of grandparents despite the more recent experience of absence of contact with his father. He reports there is a pedigree for depression on the maternal side of his parents. He states his mother, maternal aunt, and at least 1 cousin have had symptomatic depressions and been treated. The patient has graduated high school and has a few college credits. He states he preferred to work and dropped out of college. 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 The patient states he has several good friends. He has had other romantic relationships, but the current broken relationship was "by far the most serious and my heart was broken." ADMISSION MENTAL STATUS EXAM: The patient presents as a young adult male who presents as alert, oriented, relatively calm, cooperative, and conversant in the admission contact. Patient's mood state is significantly dysphoric albeit less so than my initial contact with him in the consultation 07/09/2016. The patient's speech is soft and slightly slowed. He makes excellent eye contact. Patient's thought process is linear, organized, and reality focused. Patient is openly disclosing, filling out additional details referenced in the above narrative that he had initiated sharing with me in the visit of 07/09/2016. The patient's range of affect is constricted, consistent with his dysphoric mood. The patient is alert, oriented x4, evidences average intelligence, referencing his vocabulary, language syntax, and general fund of information. The patient's impulse control is intact, insight fair, and judgment is fair at time of contact. The patient's gait and station are within normal limits. I am not able to grader meat his ADL capacity as he is unable to perform ADLs secondary to the casted status of both upper extremities. The patient reiterates his investment in his psychiatric treatment plan including the diagnostic workup dimension. Medications are reviewed and he understands I will be increasing his bupropion SR dose to 200 mg daily. Session focuses on staging his current mental status, reviewing and adding further detail to his syndromal and treatment history and lifeline history. FORMULATION: The patient presents as a 21-year-old single, white male who has the onset of his chronic depression at ages 12-13. The circumstances and dynamics driving the emergence of this depression are unclear and will be a focus of the initial workup. He is admitted at this time following a lethally- intended suicide attempt by severe wrist slashing bilaterally. This occurred on 07/05/2016. The patient required emergency surgery to repair the deep lacerations of both wrists as well as have the stab wound in his groin sutured. He was then admitted to the ICU where he remained 07/05 through his transfer to [address] [place] [address] in the p.m. 07/12. The patient appears to be motivated for the current treatment intervention as referenced. Inpatient goals will be to complete diagnostic workup as well as stabilize his mental status sufficient for discharge. We also will clarify with his surgeon, Dr. Dove, patient's surgical rehabilitation needs, prognosis, and input on pain management. INITIAL TREATMENT PLAN: 1. Nursing: Complete admission assessment; monitor patient for safety and suicidality; reinforce compliance with cares and medications, orient patient to the unit milieu and group program and encourage participation. 2. Psychiatry: Complete admission assessment; provide daily E/M contacts with focus on completing diagnostic workup, assessing and managing psychoactive medication needs, providing reintegrative psychotherapy, allying patient for definitive psychiatric followup post discharge to linked discharge plan. 3. Admission medical assessment: Completed per Dr. Velazquez. 4. Clinical coordinator: Daily contacts to expand the database, contact essential collaterals, identify discharge resources fitting the definitive discharge plan. 5. Medications: Will currently continue patient on the trial of bupropion and anticipate increasing SR dosing to 300 mg plus; will also continue patient's pain coverage with oxycodone and anxiety management with the Neurontin 300 mg t.i.d. and Ativan 0.5-1 mg q.4 h.p.r.n. which is a continuation of medications received in the ICU. 6. Prioritized inpatient goals: Stabilize mental status sufficient for discharge; complete diagnostic workup to inform a definitive psychiatric discharge plan to which patient is linked post discharge; clarify surgical rehabilitation needs to include in the discharge planning in consultation with patient's surgeon Dr. Dove; ally patient with his post discharge psychiatric and surgical followup plans. /[id number]/MODL Olimpia 07/24/16, al DAVIS
[2016-07-15] MEDS: IBUPROFEN 600 MG TAB PO PRN (01:26)
[2016-07-15] MEDS: oxyCODONE IR 5 MG TAB PO PRN ×2 (01:27→08:05)
[2016-07-15] MEDS: ZOLPIDEM TARTRATE 5 MG TAB PO PRN ×2 (01:38→22:08)
--- NOTE | 2016-07-15 06:41 | SOAPPROG ---
[facility] Progress Note Assessment/Plan: Assessment: Plan: 07/14/16 0800 DAY 3 Service 07/13 - Admission Evaluation - see transcribed Evaluation 07/14/16 11:15 DAY ' UPDATE: Nursing reports pt evidences diminishing syndromal depression - more milieu visibiity, attending selected groups, c/w cares/meds; appears to be adapting well to unit community. ON EXAM: calm, conversant; reviews syndromal update, medication review; pt's opiate orders are now 2 orders which defines the prn mg range for mild to moderate pain and for severe pain; also pt understands change in Ativan prn orders to q4h prn with max of 3 tabs per 24 hours and is accepting of these changes. ASSESSMENT/PLAN: descriptively improving, limited insight; anxious for me to obtain collateral from mother which I'll do in AM/ no change in current meds or management plan. 07/15/16 DAY 08/21' UPDATRE: Objective: Vital Signs Temp Pulse Resp BP Pulse Ox 36.9 C 92 16 131/88 H 94 07/15/16 06:00 07/15/16 06:00 07/15/16 06:00 07/15/16 06:00 07/15/16 06:00 ICD10 Worksheet Patient Problems: Problems Problem Status Onset Multiple lacerations Acute Self-inflicted laceration of wrist Acute Suicide ideation Acute Tendon laceration Acute
[2016-07-15] MEDS: SENNOSIDES 1 TAB PO SCH ×2 (08:06→21:35)
[2016-07-15] MEDS: GABAPENTIN 300 MG CAP PO SCH ×3 (08:06→21:35)
[2016-07-15] MEDS: DOCUSATE SODIUM 100 MG CAP PO SCH ×2 (08:06→21:35)
[2016-07-15] MEDS: LORazepam 1 MG TAB PO PRN (08:07)
[2016-07-15] MEDS ORDERED: GABAPENTIN 300 MG CAP PO SCH (09:00)
--- NOTE | 2016-07-15 11:10 | SOAPPROG ---
[facility] Progress Note Assessment/Plan: Assessment: Plan: 07/14/16 0800 DAY 3 Service 07/13 - Admission Evaluation - see transcribed Evaluation 07/14/16 11:15 DAY UPDATE: Nursing reports pt evidences diminishing syndromal depression - more milieu visibiity, attending selected groups, c/w cares/meds; appears to be adapting well to unit community. ON EXAM: calm, conversant; reviews syndromal update, medication review; pt's opiate orders are now 2 orders which defines the prn mg range for mild to moderate pain and for severe pain; also pt understands change in Ativan prn orders to q4h prn with max of 3 tabs per 24 hours and is accepting of these changes. ASSESSMENT/PLAN: descriptively improving, limited insight; anxious for me to obtain collateral from mother which I'll do in AM/ no change in current meds or management plan. 07/15/16 11:00 DAY UPDATE: Nursing re;ports pt sustaining progress in lessening syndromal depression and engaging the psychosocial elements in the rx plan; c/w cares and meds. ON EXAM: calm, cooperative, conversant; able to a/t conversation with his CC yesterday which covered important early life history during formation of his depressed self-image emerging in late childhood pre-teen development; FOC withdrew in his life, academic performance seriously deteriorated middle school into high school, substance use with THC/ETOH surfaced paralleling interior sense of depression into adolescent years; pt identified anger as thematic part of memories - will continue to develop dynamic anlage to prepare pt for followup psycho therapy work. ASSESSMENT/PLAN: descriptive progress continues and workup continues/ no change in meds or management; formulate definitive DC plans into coming week with surgical rehab primary integrated with psychiatric community followup - contact with Dr Dove pending 07/17 Objective: Vital Signs Temp Pulse Resp BP Pulse Ox 36.9 C 92 16 131/88 H 94 07/15/16 06:00 07/15/16 06:00 07/15/16 06:00 07/15/16 06:00 07/15/16 06:00 ICD10 Worksheet Patient Problems: Problems Problem Status Onset Multiple lacerations Acute Self-inflicted laceration of wrist Acute Suicide ideation Acute Tendon laceration Acute
[2016-07-15] MEDS: ACETAMINOPHEN 325 MG TAB PO PRN ×2 (11:11→19:19)
[2016-07-15] MEDS: buPROPion SR 100 MG TAB PO SCH (11:13)
[2016-07-15] MEDS: OXYCODONE/APAP 5/325 TAB PO PRN ×3 (14:19→22:07)
[2016-07-16] MEDS: OXYCODONE/APAP 5/325 TAB PO PRN ×2 (04:51→08:59)
[2016-07-16] MEDS: LORazepam 1 MG TAB PO PRN ×3 (04:56→12:46)
--- NOTE | 2016-07-16 07:25 | SOAPPROG ---
[facility] Progress Note Assessment/Plan: Assessment: Plan: 07/14/16 0800 DAY 3 Service 07/13 - Admission Evaluation - see transcribed Evaluation 07/14/16 11:15 DAY UPDATE: Nursing reports pt evidences diminishing syndromal depression - more milieu visibiity, attending selected groups, c/w cares/meds; appears to be adapting well to unit community. ON EXAM: calm, conversant; reviews syndromal update, medication review; pt's opiate orders are now 2 orders which defines the prn mg range for mild to moderate pain and for severe pain; also pt understands change in Ativan prn orders to q4h prn with max of 3 tabs per 24 hours and is accepting of these changes. ASSESSMENT/PLAN: descriptively improving, limited insight; anxious for me to obtain collateral from mother which I'll do in AM/ no change in current meds or management plan. 07/15/16 11:00 DAY UPDATE: Nursing reports pt sustaining progress in lessening syndromal depression and engaging the psychosocial elements in the rx plan; c/w cares and meds. ON EXAM: calm, cooperative, conversant; able to a/t conversation with his CC yesterday which covered important early life history during formation of his depressed self-image emerging in late childhood pre-teen development; FOC withdrew in his life, academic performance seriously deteriorated middle school into high school, substance use with THC/ETOH surfaced paralleling interior sense of depression into adolescent years; pt identified anger as thematic part of memories - will continue to develop dynamic anlage to prepare pt for followup psycho therapy work. ASSESSMENT/PLAN: descriptive progress continues and workup continues/ no change in meds or management; formulate definitive DC plans into coming week with surgical rehab primary integrated with psychiatric community followup - contact with Dr Dove pending 07/1707/16/16 DAY UPDATE: Objective: Vital Signs Temp Pulse Resp BP Pulse Ox 36.6 C 67 14 125/81 H 94 07/16/16 06:00 07/16/16 06:00 07/16/16 06:00 07/16/16 06:00 07/16/16 06:00 ICD10 Worksheet Patient Problems: Problems Problem Status Onset Multiple lacerations Acute Self-inflicted laceration of wrist Acute Suicide ideation Acute Tendon laceration Acute
[2016-07-16] MEDS: DOCUSATE SODIUM 100 MG CAP PO SCH ×2 (08:56→21:05)
[2016-07-16] MEDS: GABAPENTIN 300 MG CAP PO SCH ×3 (08:56→21:05)
[2016-07-16] MEDS: buPROPion SR 100 MG TAB PO SCH (08:57)
[2016-07-16] MEDS: SENNOSIDES 1 TAB PO SCH ×2 (09:01→21:06)
[2016-07-16] MEDS: IBUPROFEN 600 MG TAB PO PRN ×3 (10:03→22:22)
[2016-07-16] MEDS: oxyCODONE IR 5 MG TAB PO PRN ×3 (12:43→21:05)
[2016-07-16] MEDS: ACETAMINOPHEN 325 MG TAB PO PRN ×2 (15:35→20:29)
--- NOTE | 2016-07-16 16:01 | SOAPPROG ---
SO[facility] Progress Note Assessment/Plan: Assessment: Plan: 07/14/16 0800 DAY 3 Service 07/13 - Admission Evaluation - see transcribed Evaluation 07/14/16 11:15 DAY UPDATE: Nursing reports pt evidences diminishing syndromal depression - more milieu visibiity, attending selected groups, c/w cares/meds; appears to be adapting well to unit community. ON EXAM: calm, conversant; reviews syndromal update, medication review; pt's opiate orders are now 2 orders which defines the prn mg range for mild to moderate pain and for severe pain; also pt understands change in Ativan prn orders to q4h prn with max of 3 tabs per 24 hours and is accepting of these changes. ASSESSMENT/PLAN: descriptively improving, limited insight; anxious for me to obtain collateral from mother which I'll do in AM/ no change in current meds or management plan. 07/15/16 11:00 DAY UPDATE: Nursing reports pt sustaining progress in lessening syndromal depression and engaging the psychosocial elements in the rx plan; c/w cares and meds. ON EXAM: calm, cooperative, conversant; able to a/t conversation with his CC yesterday which covered important early life history during formation of his depressed self-image emerging in late childhood pre-teen development; FOC withdrew in his life, academic performance seriously deteriorated middle school into high school, substance use with THC/ETOH surfaced paralleling interior sense of depression into adolescent years; pt identified anger as thematic part of memories - will continue to develop dynamic anlage to prepare pt for followup psycho therapy work. ASSESSMENT/PLAN: descriptive progress continues and workup continues/ no change in meds or management; formulate definitive DC plans into coming week with surgical rehab primary integrated with psychiatric community followup - contact with Dr Dove pending 07/1707/16/16 15:32 DAY UPDATE/EXAM: Nursing reports pt is progressing descriptively, c/w cares/meds and continues to engage the milieu and group program/ on direct exam evidences less syndromal depression; yanes c/o additional pain brkthru and did bump healing site on a chair; also I noted that pt's pain meds were decreased and changed to Percocet from IR Oxycodone yesterday - will restore to previous Oxycodone order which pt was using appropriately; DC planning discussed in detail. ASSESSMENT/PLAN: continues improving course in clearing depressive acuity; ongoing paced surgical recovery/ no change in meds other than restoring Oxycodone regimen changed yesterday by hospitalist; call to pt's surgeon Dr Dove in AM prior to her consultation with pt later in day Objective: Vital Signs Temp Pulse Resp BP Pulse Ox 36.6 C 67 14 125/81 H 94 07/16/16 06:00 07/16/16 06:00 07/16/16 06:00 07/16/16 06:00 07/16/16 06:00 ICD10 Worksheet Patient Problems: Problems Problem Status Onset Multiple lacerations Acute Self-inflicted laceration of wrist Acute Suicide ideation Acute Tendon laceration Acute
[2016-07-16] MEDS: ZOLPIDEM TARTRATE 5 MG TAB PO PRN (22:22)
--- NOTE | 2016-07-17 06:32 | SOAPPROG ---
[facility] Progress Note Assessment/Plan: Assessment: Plan: 07/14/16 0800 DAY 3 Service 07/13 - Admission Evaluation - see transcribed Evaluation 07/14/16 11:15 DAY UPDATE: Nursing reports pt evidences diminishing syndromal depression - more milieu visibiity, attending selected groups, c/w cares/meds; appears to be adapting well to unit community. ON EXAM: calm, conversant; reviews syndromal update, medication review; pt's opiate orders are now 2 orders which defines the prn mg range for mild to moderate pain and for severe pain; also pt understands change in Ativan prn orders to q4h prn with max of 3 tabs per 24 hours and is accepting of these changes. ASSESSMENT/PLAN: descriptively improving, limited insight; anxious for me to obtain collateral from mother which I'll do in AM/ no change in current meds or management plan. 07/15/16 11:00 DAY UPDATE: Nursing reports pt sustaining progress in lessening syndromal depression and engaging the psychosocial elements in the rx plan; c/w cares and meds. ON EXAM: calm, cooperative, conversant; able to a/t conversation with his CC yesterday which covered important early life history during formation of his depressed self-image emerging in late childhood pre-teen development; FOC withdrew in his life, academic performance seriously deteriorated middle school into high school, substance use with THC/ETOH surfaced paralleling interior sense of depression into adolescent years; pt identified anger as thematic part of memories - will continue to develop dynamic anlage to prepare pt for followup psycho therapy work. ASSESSMENT/PLAN: descriptive progress continues and workup continues/ no change in meds or management; formulate definitive DC plans into coming week with surgical rehab primary integrated with psychiatric community followup - contact with Dr Dove pending 07/1707/16/16 15:32 DAY UPDATE/EXAM: Nursing reports pt is progressing descriptively, c/w cares/meds and continues to engage the milieu and group program/ on direct exam evidences less syndromal depression; yanes c/o additional pain brkthru and did bump healing site on a chair; also I noted that pt's pain meds were decreased and changed to Percocet from IR Oxycodone yesterday - will restore to previous Oxycodone order which pt was using appropriately; DC planning discussed in detail. ASSESSMENT/PLAN: continues improving course in clearing depressive acuity; ongoing paced surgical recovery/ no change in meds other than restoring Oxycodone regimen changed yesterday by hospitalist; call to pt's surgeon Dr Dove in AM prior to her consultation with pt later in day 07/17/16 DAY ' UPDATE: Objective: Vital Signs Temp Pulse Resp BP Pulse Ox 36.8 C 65 14 100/58 L 99 07/17/16 06:00 07/17/16 06:00 07/17/16 06:00 07/17/16 06:00 07/17/16 06:00 ICD10 Worksheet Patient Problems: Problems Problem Status Onset Multiple lacerations Acute Self-inflicted laceration of wrist Acute Suicide ideation Acute Tendon laceration Acute
[2016-07-17] MEDS: oxyCODONE IR 5 MG TAB PO PRN ×6 (06:42→22:25)
[2016-07-17] MEDS: GABAPENTIN 300 MG CAP PO SCH ×3 (08:04→22:25)
[2016-07-17] MEDS: buPROPion SR 100 MG TAB PO SCH (08:06)
[2016-07-17] MEDS: SENNOSIDES 1 TAB PO SCH ×2 (08:06→22:34)
[2016-07-17] MEDS: DOCUSATE SODIUM 100 MG CAP PO SCH ×2 (08:57→22:25)
[2016-07-17] MEDS: LORazepam 1 MG TAB PO PRN ×3 (09:49→23:02)
--- NOTE | 2016-07-17 15:20 | SOAPPROG ---
SO[facility] Progress Note Assessment/Plan: Assessment: Plan: 07/14/16 0800 DAY 3 Service 07/13 - Admission Evaluation - see transcribed Evaluation 07/14/16 11:15 DAY UPDATE: Nursing reports pt evidences diminishing syndromal depression - more milieu visibiity, attending selected groups, c/w cares/meds; appears to be adapting well to unit community. ON EXAM: calm, conversant; reviews syndromal update, medication review; pt's opiate orders are now 2 orders which defines the prn mg range for mild to moderate pain and for severe pain; also pt understands change in Ativan prn orders to q4h prn with max of 3 tabs per 24 hours and is accepting of these changes. ASSESSMENT/PLAN: descriptively improving, limited insight; anxious for me to obtain collateral from mother which I'll do in AM/ no change in current meds or management plan. 07/15/16 11:00 DAY UPDATE: Nursing reports pt sustaining progress in lessening syndromal depression and engaging the psychosocial elements in the rx plan; c/w cares and meds. ON EXAM: calm, cooperative, conversant; able to a/t conversation with his CC yesterday which covered important early life history during formation of his depressed self-image emerging in late childhood pre-teen development; FOC withdrew in his life, academic performance seriously deteriorated middle school into high school, substance use with THC/ETOH surfaced paralleling interior sense of depression into adolescent years; pt identified anger as thematic part of memories - will continue to develop dynamic anlage to prepare pt for followup psycho therapy work. ASSESSMENT/PLAN: descriptive progress continues and workup continues/ no change in meds or management; formulate definitive DC plans into coming week with surgical rehab primary integrated with psychiatric community followup - contact with Dr Dove pending 07/1707/16/16 15:32 DAY UPDATE/EXAM: Nursing reports pt is progressing descriptively, c/w cares/meds and continues to engage the milieu and group program/ on direct exam evidences less syndromal depression; does c/o additional pain brkthru and did bump healing site on a chair; also I noted that pt's pain meds were decreased and changed to Percocet from IR Oxycodone yesterday - will restore to previous Oxycodone order which pt was using appropriately; DC planning discussed in detail. ASSESSMENT/PLAN: continues improving course in clearing depressive acuity; ongoing paced surgical recovery/ no change in meds other than restoring Oxycodone regimen changed yesterday by hospitalist; call to pt's surgeon Dr Dove in AM prior to his consultation with pt later in day 07/17/16 14:00 DAY ' UPDATE/EXAM: Nursing reports pt is continuing to engage the care plan cooperatively, c/w cares and meds, selectively social and attends gruops selectively; residual faltness of affect and dysphoric mood still visible/on direct exam pt does evidence depressive residual, denies SI, able to discuss consultation with Dr. Dove in detail and is pleased with sutures removal andrecasting wrists with removabl casts to allow to begin self-directed PT and expansion of task functioning. ASSESSMENT/PLAN: residual syndromal depression; recovery progress surgically as referenced/ will increase Bupropion dosing, continue current management plan; call still pending from me to Dr. Dove; moving into Dc planning phase Objective: Vital Signs Temp Pulse Resp BP Pulse Ox 36.8 C 65 14 100/58 L 99 07/17/16 06:00 07/17/16 06:00 07/17/16 06:00 07/17/16 06:00 07/17/16 06:00 ICD10 Worksheet Patient Problems: Problems Problem Status Onset Multiple lacerations Acute Self-inflicted laceration of wrist Acute Suicide ideation Acute Tendon laceration Acute
[2016-07-17] MEDS: ACETAMINOPHEN 325 MG TAB PO PRN ×2 (15:56→20:28)
[2016-07-17] MEDS: ZOLPIDEM TARTRATE 5 MG TAB PO PRN (23:02)
--- NOTE | 2016-07-18 07:25 | SOAPPROG ---
[facility] Progress Note Assessment/Plan: Assessment: Plan: 07/14/16 0800 DAY 3 Service 07/13 - Admission Evaluation - see transcribed Evaluation 07/14/16 11:15 DAY UPDATE: Nursing reports pt evidences diminishing syndromal depression - more milieu visibiity, attending selected groups, c/w cares/meds; appears to be adapting well to unit community. ON EXAM: calm, conversant; reviews syndromal update, medication review; pt's opiate orders are now 2 orders which defines the prn mg range for mild to moderate pain and for severe pain; also pt understands change in Ativan prn orders to q4h prn with max of 3 tabs per 24 hours and is accepting of these changes. ASSESSMENT/PLAN: descriptively improving, limited insight; anxious for me to obtain collateral from mother which I'll do in AM/ no change in current meds or management plan. 07/15/16 11:00 DAY UPDATE: Nursing reports pt sustaining progress in lessening syndromal depression and engaging the psychosocial elements in the rx plan; c/w cares and meds. ON EXAM: calm, cooperative, conversant; able to a/t conversation with his CC yesterday which covered important early life history during formation of his depressed self-image emerging in late childhood pre-teen development; FOC withdrew in his life, academic performance seriously deteriorated middle school into high school, substance use with THC/ETOH surfaced paralleling interior sense of depression into adolescent years; pt identified anger as thematic part of memories - will continue to develop dynamic anlage to prepare pt for followup psycho therapy work. ASSESSMENT/PLAN: descriptive progress continues and workup continues/ no change in meds or management; formulate definitive DC plans into coming week with surgical rehab primary integrated with psychiatric community followup - contact with Dr Dove pending 07/1707/16/16 15:32 DAY UPDATE/EXAM: Nursing reports pt is progressing descriptively, c/w cares/meds and continues to engage the milieu and group program/ on direct exam evidences less syndromal depression; does c/o additional pain brkthru and did bump healing site on a chair; also I noted that pt's pain meds were decreased and changed to Percocet from IR Oxycodone yesterday - will restore to previous Oxycodone order which pt was using appropriately; DC planning discussed in detail. ASSESSMENT/PLAN: continues improving course in clearing depressive acuity; ongoing paced surgical recovery/ no change in meds other than restoring Oxycodone regimen changed yesterday by hospitalist; call to pt's surgeon Dr Dove in AM prior to his consultation with pt later in day 07/17/16 14:00 DAY UPDATE/EXAM: Nursing reports pt is continuing to engage the care plan cooperatively, c/w cares and meds, selectively social and attends groups selectively; residual flatness of affect and dysphoric mood still visible/on direct exam pt does evidence depressive residual, denies SI, able to discuss consultation with Dr. Dove in detail and is pleased with sutures removal and recasting wrists with removeable casts to allow to begin self-directed PT and expansion of task functioning. ASSESSMENT/PLAN: residual syndromal depression; recovery progress surgically as referenced/ will increase Bupropion dosing, continue current management plan; call still pending from me to Dr. Dove; moving into Dc planning phase 07/18/16 DAY UPDATE/EXAM: Objective: Vital Signs Temp Pulse Resp BP Pulse Ox 36.5 C 78 15 123/85 H 98 07/18/16 04:50 07/18/16 04:50 07/18/16 04:50 07/18/16 04:50 07/18/16 04:50 ICD10 Worksheet Patient Problems: Problems Problem Status Onset Multiple lacerations Acute Self-inflicted laceration of wrist Acute Suicide ideation Acute Tendon laceration Acute
[2016-07-18] MEDS: GABAPENTIN 300 MG CAP PO SCH ×3 (08:50→22:12)
[2016-07-18] MEDS: buPROPion XL 150 MG TAB PO SCH (08:50)
[2016-07-18] MEDS: DOCUSATE SODIUM 100 MG CAP PO SCH ×2 (08:50→22:12)
[2016-07-18] MEDS: oxyCODONE IR 5 MG TAB PO PRN ×4 (08:50→22:24)
[2016-07-18] MEDS ORDERED: buPROPion SR 150 MG TAB PO SCH (09:00)
[2016-07-18] MEDS: SENNOSIDES 1 TAB PO SCH ×2 (11:10→22:34)
[2016-07-18] MEDS: ACETAMINOPHEN 325 MG TAB PO PRN ×3 (11:54→20:52)
[2016-07-18] MEDS: LORazepam 1 MG TAB PO PRN ×2 (16:28→20:52)
[2016-07-18] MEDS: ZOLPIDEM TARTRATE 5 MG TAB PO PRN ×2 (22:44→23:04)
[2016-07-19 03:35] VITALS: RESP 16; O2SAT 96
--- NOTE | 2016-07-19 06:26 | SOAPPROG ---
SO[facility] Progress Note Assessment/Plan: Assessment: Plan: 07/14/16 0800 DAY 3 Service 07/13 - Admission Evaluation - see transcribed Evaluation 07/14/16 11:15 DAY UPDATE: Nursing reports pt evidences diminishing syndromal depression - more milieu visibiity, attending selected groups, c/w cares/meds; appears to be adapting well to unit community. ON EXAM: calm, conversant; reviews syndromal update, medication review; pt's opiate orders are now 2 orders which defines the prn mg range for mild to moderate pain and for severe pain; also pt understands change in Ativan prn orders to q4h prn with max of 3 tabs per 24 hours and is accepting of these changes. ASSESSMENT/PLAN: descriptively improving, limited insight; anxious for me to obtain collateral from mother which I'll do in AM/ no change in current meds or management plan. 07/15/16 11:00 DAY UPDATE: Nursing reports pt sustaining progress in lessening syndromal depression and engaging the psychosocial elements in the rx plan; c/w cares and meds. ON EXAM: calm, cooperative, conversant; able to a/t conversation with his CC yesterday which covered important early life history during formation of his depressed self-image emerging in late childhood pre-teen development; FOC withdrew in his life, academic performance seriously deteriorated middle school into high school, substance use with THC/ETOH surfaced paralleling interior sense of depression into adolescent years; pt identified anger as thematic part of memories - will continue to develop dynamic anlage to prepare pt for followup psycho therapy work. ASSESSMENT/PLAN: descriptive progress continues and workup continues/ no change in meds or management; formulate definitive DC plans into coming week with surgical rehab primary integrated with psychiatric community followup - contact with Dr Dove pending 07/1707/16/16 15:32 DAY UPDATE/EXAM: Nursing reports pt is progressing descriptively, c/w cares/meds and continues to engage the milieu and group program/ on direct exam evidences less syndromal depression; does c/o additional pain brkthru and did bump healing site on a chair; also I noted that pt's pain meds were decreased and changed to Percocet from IR Oxycodone yesterday - will restore to previous Oxycodone order which pt was using appropriately; DC planning discussed in detail. ASSESSMENT/PLAN: continues improving course in clearing depressive acuity; ongoing paced surgical recovery/ no change in meds other than restoring Oxycodone regimen changed yesterday by hospitalist; call to pt's surgeon Dr Dove in AM prior to his consultation with pt later in day 07/17/16 14:00 DAY UPDATE/EXAM: Nursing reports pt is continuing to engage the care plan cooperatively, c/w cares and meds, selectively social and attends groups selectively; residual flatness of affect and dysphoric mood still visible/on direct exam pt does evidence depressive residual, denies SI, able to discuss consultation with Dr. Dove in detail and is pleased with sutures removal and recasting wrists with removable casts to allow to begin self-directed PT and expansion of task functioning. ASSESSMENT/PLAN: residual syndromal depression; recovery progress surgically as referenced/ will increase Bupropion dosing, continue current management plan; call still pending from me to Dr. Dove; moving into Dc planning phase 07/18/16 DAY UPDATE/EXAM: Nursing reports pt continues productive engagement in rx kathi; minimal residual syndromal depression; pt observed pushing self to use upper extremities and hands in active pursuit of functional recovery - washing self and dressing self with [employer] assist prn; continues with milieu visibility and selective attendance in groups./ on direct exam presents as calm, cooperative, conversant; mildly dyphoric and constricted as he associates to loss of GF relationship and reiterates the pain of the breakup; shifts easily to Dc planning which does include contacting exGF to retrieve his pet snake; he has closed a placement with friends, plans f/u with pvt psychiatrist for meds management and ? of psychotherapy referral remains altho pt less ambivalent as he discusses using therapy groups on the unit. [place] of opiates discussed wrt tapering and post DC followup ASSESSMENT/PLAN: syndromal depression on final stage of acuity resolution; rehab progressing well/ begin tapering opiates, call to Dr Dove pending, finalize DC planning with DC anticipated 07/20 Objective: Vital Signs Temp Pulse Resp BP Pulse Ox 36.3 C 70 16 116/73 96 07/19/16 03:34 07/19/16 03:34 07/19/16 03:34 07/19/16 03:34 07/19/16 03:34 ICD10 Worksheet Patient Problems: Problems Problem Status Onset Multiple lacerations Acute Self-inflicted laceration of wrist Acute Suicide ideation Acute Tendon laceration Acute
[2016-07-19] MEDS: buPROPion XL 150 MG TAB PO SCH (08:24)
[2016-07-19] MEDS: DOCUSATE SODIUM 100 MG CAP PO SCH ×2 (08:25→22:01)
[2016-07-19] MEDS: GABAPENTIN 300 MG CAP PO SCH ×3 (08:25→22:02)
[2016-07-19] MEDS: oxyCODONE IR 5 MG TAB PO PRN (08:26)
[2016-07-19] MEDS: SENNOSIDES 1 TAB PO SCH ×2 (08:56→22:00)
[2016-07-19] MEDS: ACETAMINOPHEN 325 MG TAB PO PRN ×2 (09:12→16:03)
[2016-07-19] MEDS: IBUPROFEN 600 MG TAB PO PRN (11:19)
--- NOTE | 2016-07-19 11:20 | SOAPPROG ---
SOAP Progress Note Assessment/Plan: Assessment: Plan: 07/14/16 0800 DAY 3 Service 07/13 - Admission Evaluation - see transcribed Evaluation 07/14/16 11:15 DAY UPDATE: Nursing reports pt evidences diminishing syndromal depression - more milieu visibiity, attending selected groups, c/w cares/meds; appears to be adapting well to unit community. ON EXAM: calm, conversant; reviews syndromal update, medication review; pt's opiate orders are now 2 orders which defines the prn mg range for mild to moderate pain and for severe pain; also pt understands change in Ativan prn orders to q4h prn with max of 3 tabs per 24 hours and is accepting of these changes. ASSESSMENT/PLAN: descriptively improving, limited insight; anxious for me to obtain collateral from mother which I'll do in AM/ no change in current meds or management plan. 07/15/16 11:00 DAY UPDATE: Nursing reports pt sustaining progress in lessening syndromal depression and engaging the psychosocial elements in the rx plan; c/w cares and meds. ON EXAM: calm, cooperative, conversant; able to a/t conversation with his CC yesterday which covered important early life history during formation of his depressed self-image emerging in late childhood pre-teen development; FOC withdrew in his life, academic performance seriously deteriorated middle school into high school, substance use with THC/ETOH surfaced paralleling interior sense of depression into adolescent years; pt identified anger as thematic part of memories - will continue to develop dynamic anlage to prepare pt for followup psycho therapy work. ASSESSMENT/PLAN: descriptive progress continues and workup continues/ no change in meds or management; formulate definitive DC plans into coming week with surgical rehab primary integrated with psychiatric community followup - contact with Dr Dove pending 07/1707/16/16 15:32 DAY UPDATE/EXAM: Nursing reports pt is progressing descriptively, c/w cares/meds and continues to engage the milieu and group program/ on direct exam evidences less syndromal depression; does c/o additional pain brkthru and did bump healing site on a chair; also I noted that pt's pain meds were decreased and changed to Percocet from IR Oxycodone yesterday - will restore to previous Oxycodone order which pt was using appropriately; DC planning discussed in detail. ASSESSMENT/PLAN: continues improving course in clearing depressive acuity; ongoing paced surgical recovery/ no change in meds other than restoring Oxycodone regimen changed yesterday by hospitalist; call to pt's surgeon Dr Dove in AM prior to his consultation with pt later in day 07/17/16 14:00 DAY UPDATE/EXAM: Nursing reports pt is continuing to engage the care plan cooperatively, c/w cares and meds, selectively social and attends groups selectively; residual flatness of affect and dysphoric mood still visible/on direct exam pt does evidence depressive residual, denies SI, able to discuss consultation with Dr. Dove in detail and is pleased with sutures removal and recasting wrists with removable casts to allow to begin self-directed PT and expansion of task functioning. ASSESSMENT/PLAN: residual syndromal depression; recovery progress surgically as referenced/ will increase Bupropion dosing, continue current management plan; call still pending from me to Dr. Dove; moving into Dc planning phase 07/18/16 DAY UPDATE/EXAM: Nursing reports pt continues productive engagement in rx kathi; minimal residual syndromal depression; pt observed pushing self to use upper extremities and hands in active pursuit of functional recovery - washing self and dressing self with ENTRY LEVEL SOFTWARE DEVELOPER assist prn; continues with milieu visibility and selective attendance in groups./ on direct exam presents as calm, cooperative, conversant; mildly dyphoric and constricted as he associates to loss of GF relationship and reiterates the pain of the breakup; shifts easily to Dc planning which does include contacting exGF to retrieve his pet snake; he has closed a placement with friends, plans f/u with pvt psychiatrist for meds management and ? of psychotherapy referral remains altho pt less ambivalent as he discusses using therapy groups on the unit. [place] of opiates discussed wrt tapering and post DC followup ASSESSMENT/PLAN: syndromal depression on final stage of acuity resolution; rehab progressing well/ begin tapering opiates, call to Dr Dove pending, finalize DC planning with DC anticipated 07/2007/19/16 11:04 DAY UPDATE/EXAM: Nursing reports pt continues to evidence improving affective restabilization; continues to engage ra plan in preparing for his DC tomorrow on direct exam presents as calm and conversant; minimal dysphoria; meds reviewed , goals post dC discussed; pt knows he'll see Dr Dove in [address] Dove will assess pain management and use of opiates at that time - pt to begin taper off Oxycodone now. ASSESSMENT/PLAN: improving course; Nursing notes some regessive dependent behaviors in interactions with ENTRY LEVEL SOFTWARE DEVELOPER and limits applied/ begin Oxy taper per orders; o/w no change in meds or management plan Objective: Vital Signs Temp Pulse Resp BP Pulse Ox 36.3 C 70 16 116/73 96 07/19/16 03:34 07/19/16 03:34 07/19/16 03:34 07/19/16 03:34 07/19/16 03:34 ICD10 Worksheet Patient Problems: Problems Problem Status Onset Multiple lacerations Acute Self-inflicted laceration of wrist Acute Suicide ideation Acute Tendon laceration Acute
[2016-07-19] MEDS: oxyCODONE IR 15 MG TAB PO PRN ×3 (13:42→22:04)
[2016-07-19] MEDS: LORazepam 1 MG TAB PO PRN ×2 (16:03→22:57)
[2016-07-19] MEDS: ZOLPIDEM TARTRATE 5 MG TAB PO PRN (22:57)
[2016-07-20 06:15] VITALS: BP 103/57; PULSE 63; TEMP 98.1
--- NOTE | 2016-07-20 06:41 | SOAPPROG ---
SOAP Progress Note Assessment/Plan: Assessment: Plan: 07/14/16 0800 DAY 3 Service 07/13 - Admission Evaluation - see transcribed Evaluation 07/14/16 11:15 DAY UPDATE: Nursing reports pt evidences diminishing syndromal depression - more milieu visibiity, attending selected groups, c/w cares/meds; appears to be adapting well to unit community. ON EXAM: calm, conversant; reviews syndromal update, medication review; pt's opiate orders are now 2 orders which defines the prn mg range for mild to moderate pain and for severe pain; also pt understands change in Ativan prn orders to q4h prn with max of 3 tabs per 24 hours and is accepting of these changes. ASSESSMENT/PLAN: descriptively improving, limited insight; anxious for me to obtain collateral from mother which I'll do in AM/ no change in current meds or management plan. 07/15/16 11:00 DAY UPDATE: Nursing reports pt sustaining progress in lessening syndromal depression and engaging the psychosocial elements in the rx plan; c/w cares and meds. ON EXAM: calm, cooperative, conversant; able to a/t conversation with his CC yesterday which covered important early life history during formation of his depressed self-image emerging in late childhood pre-teen development; FOC withdrew in his life, academic performance seriously deteriorated middle school into high school, substance use with THC/ETOH surfaced paralleling interior sense of depression into adolescent years; pt identified anger as thematic part of memories - will continue to develop dynamic anlage to prepare pt for followup psycho therapy work. ASSESSMENT/PLAN: descriptive progress continues and workup continues/ no change in meds or management; formulate definitive DC plans into coming week with surgical rehab primary integrated with psychiatric community followup - contact with Dr Dove pending 07/1707/16/16 15:32 DAY UPDATE/EXAM: Nursing reports pt is progressing descriptively, c/w cares/meds and continues to engage the milieu and group program/ on direct exam evidences less syndromal depression; does c/o additional pain brkthru and did bump healing site on a chair; also I noted that pt's pain meds were decreased and changed to Percocet from IR Oxycodone yesterday - will restore to previous Oxycodone order which pt was using appropriately; DC planning discussed in detail. ASSESSMENT/PLAN: continues improving course in clearing depressive acuity; ongoing paced surgical recovery/ no change in meds other than restoring Oxycodone regimen changed yesterday by hospitalist; call to pt's surgeon Dr Dove in AM prior to his consultation with pt later in day 07/17/16 14:00 DAY UPDATE/EXAM: Nursing reports pt is continuing to engage the care plan cooperatively, c/w cares and meds, selectively social and attends groups selectively; residual flatness of affect and dysphoric mood still visible/on direct exam pt does evidence depressive residual, denies SI, able to discuss consultation with Dr. Dove in detail and is pleased with sutures removal and recasting wrists with removable casts to allow to begin self-directed PT and expansion of task functioning. ASSESSMENT/PLAN: residual syndromal depression; recovery progress surgically as referenced/ will increase Bupropion dosing, continue current management plan; call still pending from me to Dr. Dove; moving into Dc planning phase 07/18/16 DAY UPDATE/EXAM: Nursing reports pt continues productive engagement in rx kathi; minimal residual syndromal depression; pt observed pushing self to use upper extremities and hands in active pursuit of functional recovery - washing self and dressing self with GAS METER PROVER assist prn; continues with milieu visibility and selective attendance in groups./ on direct exam presents as calm, cooperative, conversant; mildly dyphoric and constricted as he associates to loss of GF relationship and reiterates the pain of the breakup; shifts easily to Dc planning which does include contacting exGF to retrieve his pet snake; he has closed a placement with friends, plans f/u with pvt psychiatrist for meds management and ? of psychotherapy referral remains altho pt less ambivalent as he discusses using therapy groups on the unit. [place] of opiates discussed wrt tapering and post DC followup ASSESSMENT/PLAN: syndromal depression on final stage of acuity resolution; rehab progressing well/ begin tapering opiates, call to Dr Dove pending, finalize DC planning with DC anticipated 07/2007/19/16 11:04 DAY UPDATE/EXAM: Nursing reports pt continues to evidence improving affective restabilization; continues to engage rx plan in preparing for his DC tomorrow on direct exam presents as calm and conversant; minimal dysphoria; meds reviewed , goals post DC discussed; pt knows he'll see Dr Dove in [address] Dove will assess pain management and use of opiates at that time - pt to begin taper off Oxycodone now. ASSESSMENT/PLAN: improving course; Nursing notes some regessive dependent behaviors in interactions with GAS METER PROVER and limits applied/ begin Oxy taper per orders; o/w no change in meds or management plan 07/20/16 Brief Discharge Note ' UPDATE: Objective: Vital Signs Temp Pulse Resp BP Pulse Ox 36.7 C 63 16 103/57 L 96 07/20/16 06:00 07/20/16 06:00 07/20/16 06:00 07/20/16 06:00 07/20/16 06:00 ICD10 Worksheet Patient Problems: Problems Problem Status Onset Multiple lacerations Acute Self-inflicted laceration of wrist Acute Suicide ideation Acute Tendon laceration Acute
[2016-07-20] MEDS: oxyCODONE IR 15 MG TAB PO PRN (08:41)
[2016-07-20] MEDS: buPROPion XL 150 MG TAB PO SCH (08:41)
[2016-07-20] MEDS: DOCUSATE SODIUM 100 MG CAP PO SCH (08:42)
[2016-07-20] MEDS: GABAPENTIN 300 MG CAP PO SCH (08:42)
[2016-07-20] MEDS: SENNOSIDES 1 TAB PO SCH (09:13)
[2016-07-20] MEDS: IBUPROFEN 600 MG TAB PO PRN (11:43)
[2016-07-20] MEDS: LORazepam 1 MG TAB PO PRN (11:44)
--- NOTE | 2016-07-24 06:37 | SOAPPROG ---
SOAP Progress Note Assessment/Plan: Assessment: Plan: 07/14/16 0800 DAY 3 Service 07/13 - Admission Evaluation - see transcribed Evaluation 07/14/16 11:15 DAY UPDATE: Nursing reports pt evidences diminishing syndromal depression - more milieu visibiity, attending selected groups, c/w cares/meds; appears to be adapting well to unit community. ON EXAM: calm, conversant; reviews syndromal update, medication review; pt's opiate orders are now 2 orders which defines the prn mg range for mild to moderate pain and for severe pain; also pt understands change in Ativan prn orders to q4h prn with max of 3 tabs per 24 hours and is accepting of these changes. ASSESSMENT/PLAN: descriptively improving, limited insight; anxious for me to obtain collateral from mother which I'll do in AM/ no change in current meds or management plan. 07/15/16 11:00 DAY UPDATE: Nursing reports pt sustaining progress in lessening syndromal depression and engaging the psychosocial elements in the rx plan; c/w cares and meds. ON EXAM: calm, cooperative, conversant; able to a/t conversation with his CC yesterday which covered important early life history during formation of his depressed self-image emerging in late childhood pre-teen development; FOC withdrew in his life, academic performance seriously deteriorated middle school into high school, substance use with THC/ETOH surfaced paralleling interior sense of depression into adolescent years; pt identified anger as thematic part of memories - will continue to develop dynamic anlage to prepare pt for followup psycho therapy work. ASSESSMENT/PLAN: descriptive progress continues and workup continues/ no change in meds or management; formulate definitive DC plans into coming week with surgical rehab primary integrated with psychiatric community followup - contact with Dr Dove pending 07/1707/16/16 15:32 DAY UPDATE/EXAM: Nursing reports pt is progressing descriptively, c/w cares/meds and continues to engage the milieu and group program/ on direct exam evidences less syndromal depression; does c/o additional pain brkthru and did bump healing site on a chair; also I noted that pt's pain meds were decreased and changed to Percocet from IR Oxycodone yesterday - will restore to previous Oxycodone order which pt was using appropriately; DC planning discussed in detail. ASSESSMENT/PLAN: continues improving course in clearing depressive acuity; ongoing paced surgical recovery/ no change in meds other than restoring Oxycodone regimen changed yesterday by hospitalist; call to pt's surgeon Dr Dove in AM prior to his consultation with pt later in day 07/17/16 14:00 DAY UPDATE/EXAM: Nursing reports pt is continuing to engage the care plan cooperatively, c/w cares and meds, selectively social and attends groups selectively; residual flatness of affect and dysphoric mood still visible/on direct exam pt does evidence depressive residual, denies SI, able to discuss consultation with Dr. Dove in detail and is pleased with sutures removal and recasting wrists with removable casts to allow to begin self-directed PT and expansion of task functioning. ASSESSMENT/PLAN: residual syndromal depression; recovery progress surgically as referenced/ will increase Bupropion dosing, continue current management plan; call still pending from me to Dr. Dove; moving into Dc planning phase 07/18/16 DAY UPDATE/EXAM: Nursing reports pt continues productive engagement in rx kathi; minimal residual syndromal depression; pt observed pushing self to use upper extremities and hands in active pursuit of functional recovery - washing self and dressing self with AIRFIELD SERVICES OFFICER assist prn; continues with milieu visibility and selective attendance in groups./ on direct exam presents as calm, cooperative, conversant; mildly dysphoric and constricted as he associates to loss of GF relationship and reiterates the pain of the breakup; shifts easily to Dc planning which does include contacting exGF to retrieve his pet snake; he has closed a placement with friends, plans f/u with pvt psychiatrist for meds management and ? of psychotherapy referral remains altho pt less ambivalent as he discusses using therapy groups on the unit. Issues of opiates discussed wrt tapering and post DC followup ASSESSMENT/PLAN: syndromal depression on final stage of acuity resolution; rehab progressing well/ begin tapering opiates, call to Dr Dove pending, finalize DC planning with DC anticipated 07/2007/19/16 11:04 DAY UPDATE/EXAM: Nursing reports pt continues to evidence improving affective restabilization; continues to engage rx plan in preparing for his DC tomorrow on direct exam presents as calm and conversant; minimal dysphoria; meds reviewed , goals post DC discussed; pt knows he'll see Dr Dove in [address] Dove will assess pain management and use of opiates at that time - pt to begin taper off Oxycodone now. ASSESSMENT/PLAN: improving course; Nursing notes some regessive dependent behaviors in interactions with AIRFIELD SERVICES OFFICER and limits applied/ begin Oxy taper per orders; o/w no change in meds or management plan 07/20/16 Brief Discharge Note DAY ' UPDATE:Nursing report pt sustaining improving course and support DC as scheduled today. ON EXAM: pt seen alone, in speaker phone meeting with his mother, and finally in joint meeting with friend with whom he will live along with friend's family. thru all contacts pt presented with affective stability, denies SI, logical and linear thought process; allied with DC plan and associated goals; stable and safe for DC today. ASSESSMENT/PLAN: DC today DC'd to begin living with friend's parents and friend f/u psychiatrically at [facility] 07/24 for intake f/u with surgeon Dr Dove 07/31 med as referenced with Dc prescriptions see DC Summary Medications pain meds - 15 day scripts psychiaric meds - 30 day scripts Generic Name Dose Route Start Last Admin Trade Name Freq PRN Reason Stop Dose Admin Oxycodone HCl 15 mg 07/19/16 11:21 07/20/16 08:41 Oxycodone Ir PO 07/29/16 11:20 15 mg Q4HRS PRN Pain, Severe Able to Take PO Bupropion HCl 300 mg 07/18/16 09:00 07/20/16 08:41 Wellbutrin Xl PO 01/14/17 08:59 300 mg DAILY RIRI Docusate Sodium 100 mg 07/12/16 21:00 07/20/16 08:42 Colace PO 01/08/17 20:59 100 mg BID RIRI Gabapentin 900 mg 07/15/16 21:00 07/19/16 22:02 Neurontin PO 01/11/17 20:59 900 mg HS RIRI Gabapentin 600 mg 07/17/16 17:00 07/20/16 08:42 Neurontin PO 01/13/17 16:59 600 mg BID@0800,1500 RIRI Ibuprofen 600 mg 07/12/16 17:09 07/20/16 11:43 Motrin PO 01/08/17 17:08 600 mg Q6 PRN Pain, Inflammatory Lorazepam 1 mg 07/13/16 15:11 07/20/16 11:44 Ativan PO 01/09/17 15:10 1 mg Q4HRS PRN Anxiety, Able to Take PO Zolpidem Tartrate 10 mg 07/12/16 17:13 07/19/16 22:57 Ambien PO 01/08/17 17:12 10 mg HS PRN Sleep/Insomnia Objective: Vital Signs Temp Pulse Resp BP Pulse Ox 36.7 C 63 16 103/57 L 96 07/20/16 06:00 07/20/16 06:00 07/20/16 06:00 07/20/16 06:00 07/20/16 06:00 ICD10 Worksheet Patient Problems: Problems Problem Status Onset Multiple lacerations Acute Self-inflicted laceration of wrist Acute Suicide ideation Acute Tendon laceration Acute
--- NOTE | 2016-07-24 09:29 | BDS ---
[f rep st] BEHAVIORAL HEALTH DISCHARGE SUMMARY PATIENT IDENTIFICATION: The patient presented as a 21-year-old, single, white male, who was initially admitted via the [facility] Emergency Room to the ICU on 07/05 for complaints of a lethally intended suicide attempt including severe bilateral wrist lacerations for which he underwent emergent surgery from the emergency room prior to admission to the ICU. Prior to admission, the patient was not an identified psychiatric outpatient in the community. 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 DISCHARGE DIAGNOSES: Superior I: 1. Major Depressive Disorder, childhood onset, intermittent pattern; exacerbation including lethally intended suicide attempt by wrist slashing, in early phase improvement. 2. Alcohol Use Disorder, chronic in duration, moderate in severity, prior to admission. 3. THC Use Disorder, chronic in duration; reportedly in remission for a period of 18 months prior to this admission. Superior II: Prominent dependent and passive aggressive traits. Superior III: No active medical problems; medical history noncontributory, status post remote history of dental surgery for a broken tooth and wisdom tooth extraction. Superior IV: Primary stressor associated with the break-up of a romantic relationship initiated by patient's girlfriend. Superior V: Discharge Global Assessment of Functioning of 48. DISPOSITION: 1. Patient discharged to move in with a friend and his parents. 2. Follow up psychiatric intake at [facility] on 07/24. 3. Follow up surgically with Dr. Dove, 07/31; Dr. Dove to assess pain management and pain medication needs at that time. 4. Continue self-directed rehabilitation for wrists and hands as directed by Dr. Dove. REASON FOR ADMISSION: The patient presented with a known history for chronic syndromal depression onset in late childhood, minimally treated during patient' s adolescence on an outpatient basis. The patient also had a chronic history of substance abuse associated with alcohol and THC. More recently, the patient had been relatively depression free until shortly after moving in with his girlfriend in March. Within the 1st month of cohabitation, the patient noted his girlfriend becoming more detached and aloof. He attempted to discuss this issue with his girlfriend, who is relatively noncommunicative per patient's report. This detachment continued with girlfriend spending more time away from the apartment and the patient. The patient began to experience syndromal depression which continued to progress over a period of several months. The patient's depressive stage reached crisis proportions in the context of argumentative interactions with his girlfriend through the day of his suicide attempt. The girlfriend declared she no longer cared for him and needed to separate. After she left the apartment in an angry state, the patient acted on a crisis of suicidal ideation by overdosing on 12 tablets of oxycodone and 3 Vicodin tablets in a state of intoxication, as he had been drinking excessively that day. He acted on a plan to kill himself by slashing both wrists and stabbing himself in the groin while lying in the bathtub. The patient apparently passed out from a mix of intoxication and blood loss. He awoke sometime later, noticed the bloody bath water and called 911 for assistance. He was brought by EMS to the emergency room. His stab wound to his groin was sutured in the emergency room. Given the severity of the slashing wounds to both wrists, he was seen in emergent surgical consultation by Dr. Dove and taken to surgery for repair of severed tendons and damaged median nerve on the right. He was then sent on for admission to the ICU. In the ICU, he was seen in psychiatric consultation by GRAYSON on 07/07 and by myself on 07/09. He initially presented with severe pain, agitation, and required IV Dilaudid with Precedex drip. He had been weaned to p.o. oxycodone, p.o. Dilaudid, p.o. Ativan for pain control and anxiety control by the time of my consultation. My diagnostic impression was of an exacerbation of his major depressive disorder and post a lethally-intended suicide attempt along with the substance use problems as referenced. I initiated Wellbutrin SR 100 mg q.a.m. and endorsed the patient staying on an M1 hold. At the time of my consultation, the patient had been accepted for transfer to an inpatient psychiatric service. However, he was unable to accomplish any ADL functions and required BATTER DEPOSITOR coverage for daily care needs in the ICU. This ADL assistance precluded his being transferred to the [facility] inpatient service to which he had been accepted for his clinical psychiatric acuity. We were able to work out BATTER DEPOSITOR coverage for him to be admitted to [address] [place] [address]. This coverage was finalized such that the patient was transferred to [address] [place] [address] on an M1 hold for definitive psychiatric care on 07/12. SIGNIFICANT MEDICAL FINDINGS: Per Dr. Velazquez's medical consultation after the patient's admission to [address] [place] [address], his physical exam was unremarkable other than for the elbow to fingertip casts on both upper extremities secondary to his bilateral wrist wounds. Lab screens done on 07/07 indicated diminished hemoglobin of 8.2, and diminished hematocrit 24.3, secondary to his blood loss prior to admission to the ICU. Chemistry series was within normal limits. Blood alcohol on admission to the emergency room was noted at 166 and patient's blood sugar was elevated at 184 on the 07/05 admission to the emergency room. The patient remained medically stable throughout his inpatient stay on [address] [place] [address]. HOSPITAL COURSE: The patient's evidenced acute residual syndromal depression on admission, including depressed mood, passive suicidal ideation, diminished psychomotor energy, and an element of social withdrawal. Over the course of his inpatient stay, the patient cooperated fully in engaging his inpatient psychiatric care plan. He also productively utilized psychotherapeutic sessions with myself, while driving therapeutic support from the unit community including regular attendance in the group program. As referenced, he continued to receive BATTER DEPOSITOR and nursing assist for ADLs through removal of the hard casts on 07/17, after consultation with Dr. Dove. With the removable cast placed by Dr. Dove, the patient was able to initiate a self-directed rehabilitation effort to regain use of his hands and wrists. In doing this, the patient addressed his ADL functioning and made significant gains in ability to dress, to toilet, and to feed himself. He required some residual assist with dressing at time of discharge. His syndromal depression also resolved significantly over his inpatient psychiatric course. During that time, the patient's Bupropion XL was increased to 300 mg daily. His use of oxycodone was also partially tapered. I reviewed the case in detail with Dr. Dove, who was the see the patient post discharge and manage patient's use of all pain medications including oxycodone with the expectation of continued tapering. With sufficient stability and alliance with follow-up treatment, the patient was considered sufficiently safe for discharge. The patient remained ambivalent about psychotherapy and gained limited first order insight. However, he was cooperative with followup treatment associated with [facility], including referrals for psychotherapy. The patient's mother maintains supportive telephone contact with the patient and participated in a detailed discharge planning conference by speaker phone with myself and the patient prior to discharge. CONDITION ON DISCHARGE: significantly improved MENTAL STATUS EXAM: On final contact the patient presented as calm, cooperative , and conversant. Patient's mood state was neutral, affective range broadened and padgett in expression. The patient denied all suicidal ideation. His thought process was reality focused. He was able to discuss goals associated with his followup treatment plan in the community. Medications were reviewed in detail. The patient was appropriate in expression of affect, appreciated the progress made and restated his alliance for followup psychiatric treatment. RISKS: At discharge patient was deemed low risk for self-harm or harm to others and low risk for inability to care for himself in the community; the patient understood and reiterated his safety plan in the final session. ASSETS: Friend and friend's family supporting patient by having him live temporarily with them; treatment endorsed by patient's mother; follow up appointments scheduled at time of discharge for his psychiatric and surgical follow up. DISCHARGE MEDICATIONS: Colace 100 mg p.o. b.i.d., Neurontin 600 mg p.o. b.i.d. and 900 mg p.o. h.s., Motrin 600 mg p.o. q.6h p.r.n., Ativan 1 mg p.o. q.4h p.r.n., max x3 in 24 hours. Ambien 10 mg p.o. h.s. p.r.n., bupropion XL 300 mg p.o. q.a.m. and oxycodone 50 mg p.o. q.4h p.r.n., max x3 for 24 hours. Patient given 15-day scripts for his pain medications and 30-day scripts for his psychiatric medications. DISCHARGE LEGAL STATUS: Voluntary. /[id number]/MODL MTDD
== END 2016-07-20 13:14 | disposition home or self-care (01) | DRG 885 ==
LOC: BBEH 16:35
PROVIDERS: ADMIT Psychiatry & Neurology Psychiatry; ATTEND Psychiatry & Neurology Psychiatry
DX: F33.2 Major depressive disorder, recurrent severe without psychotic features (principal); F10.99 Alcohol use, unspecified with unspecified alcohol-induced disorder; F12.90 Cannabis use, unspecified, uncomplicated